=== PATIENT | male | born 1980 | race Caucasian/White ===

== ENCOUNTER 2020-04-23 06:41 | Emergency (ER) | payer MEDICAID, SELFPAY ==
[2020-04-23 06:42] VITALS: BP 160/98; PULSE 90; RESP 18; TEMP 37.4; O2SAT 98; BMI 24.4
--- NOTE | 2020-04-23 06:46 | ED.VIS.GEN ---
History of Present Illness Chief Complaint: Nausea/Vomiting/Diarrhea Informant: Patient Onset: Yesterday Context: Sudden Onset Timing: Continuous Current Severity: Moderate Maximum Severity: Moderate Narrative: Patient is a 39-year-old male was otherwise healthy on no daily medications who presents with nausea, vomiting, diarrhea. Patient dates he was at work last evening. He states he began to feel nauseated and lightheaded. He states he has had about 3 bouts of nonbloody, nonbilious emesis. Shortly thereafter, he began to have some abdominal cramping and a few bouts of loose watery diarrhea. He denies fever. He denies cough. He is had no change in taste or smell. He states that he is starting to feel improved, but needed to be evaluated for his job. He has no history of abdominal surgery. He has no history of inflammatory bowel disease. Prior similar symptoms: No Recent Illness/Hospitalization: No Past Medical History - Allergies and Home Meds Allergies/Adverse Reactions: Allergies No Known Allergies Allergy (Verified 04/23/20 06:47) Prior records reviewed: Yes Past Medical History: None Surgical History: noncontributory Smoking Status: Current every day smoker Review of Systems General: Denies: Chills, Fever, Sweats Eyes: Denies: Visual changes - bilaterally, Diplopia ENT: Denies: Rhinorrhea, Sore throat Cardiovascular: Denies: Chest pain, Palpitations Respiratory: Denies: Dyspnea, Cough, Dyspnea on exertion Gastrointestinal: Reports: Nausea, Vomiting, Diarrhea. Denies: Abdominal pain, Melena, Hematochezia Genitourinary: Denies: Dysuria, Hematuria, Frequency Musculoskeletal: Denies: Back pain, Extremity Pain Skin: Denies: Rash, Wounds Neurological: Denies: Headache, Weakness, Numbness Physical Exam Vital Signs/Narrative: Vital Signs Temp Pulse Resp BP Pulse Ox 04/23/20 06:42 99.3 F H 90 18 160/98 H 98 Inital Vital Signs reviewed: Yes General: Well nourished, Well developed, No Acute Distress Head: Normocephalic, Atraumatic Eyes: Perrl, EOMI ENT: Moist mucous membranes, No rhinorrhea Neck: Supple, Nontender Cardiovascular: Regular rate, Regular rhythm, No murmurs Respiratory: No distress, CTA bilaterally, Chest nontender Abdomen: Soft, Nontender, Nondistended, Normal bowel sounds Back: Nontender, Normal Inspection Extremities: Nontender, No edema Skin: Normal color, No rash Neurological: Alert, Oriented x3, Cranial nerves II-XII grossly intact, Normal Strength, Normal Sensation Psychological: Normal affect, Normal Mood Diagnostic/Tx/Re-eval - Medical Decision Making Patient's abdomen is soft and nontender. He is afebrile. He is not tachycardic or tachypneic. The patient was very adamant that he did not want an IV or lab work. I feel this is reasonable. He does not appear ill or toxic. I offered him antiemetics but he states he wants to tough it out and feels that I would do better without medication. I did elect to write the patient a prescription for antiemetics which he did take. He states that if his symptoms worsen in any way, he will return for reevaluation. I feel this is reasonable. He will be discharged. Impression 1. Gastroenteritis ED Disposition - Plan for ED Patient: Instructions: ED Food Poison Or Gastroenteritis Prescriptions: Ondansetron [Zofran Odt] 4 mg PO Q8H PRN PRN #10 tab PRN Reason: Nausea Prescription Printed
[2020-04-23 06:53] VITALS: BP 152/98; PULSE 95; RESP 18; O2SAT 96
== END 2020-04-23 07:04 | disposition home or self-care (01) ==
LOC: ED 07:01
PROVIDERS: Emergency Provider Emergency Medicine
DX: K52.9 Noninfective gastroenteritis and colitis, unspecified (principal); F17.200 Nicotine dependence, unspecified, uncomplicated
CPT/HCPCS: 99282

== ENCOUNTER 2022-08-21 20:33 | Emergency (ER) | payer MEDICAID, SELFPAY ==
[2022-08-21 20:34] VITALS: BP 116/79; PULSE 89; RESP 15; TEMP 36.9; O2SAT 96; BMI 29.9
--- NOTE | 2022-08-21 20:53 | ED.VIS.LOWEX ---
HPI History of Present Illness Chief Complaint: Lower Extremity Injury Detail of Chief Complaint: Left thigh pain Informant: patient Narrative Narrative: Patient presents with intermittent left thigh pain that started about 2 weeks ago. Patient states that when he is standing on his left leg after about 5 to 10 minutes he will get a burning sensation in the muscle of the front of the thigh. Patient states that if he sits down or gets off his leg that the pain then goes away. Today he had more severe pain encounter radiated towards the left hip. He denies any falls or injuries. He has not had any recent illness. He is never had discomfort like this before. Patient denies weakness of the extremity. PFSH PFS Medical History Anxiety Depression Smoker Home Medications buspirone 10 mg tablet 10 mg PO DAILY 08/21/22 [History Last Taken Unknown] naproxen 500 mg tablet 500 mg PO BID #14 tabs 08/21/22 [Rx Last Taken Unknown] potassium chloride 20 mEq tablet,extended release(part/cryst) 20 meq PO DAILY #10 tabs 08/21/22 [Rx Last Taken Unknown] quetiapine 100 mg tablet 100 mg PO QHS 08/21/22 [History Last Taken Unknown] venlafaxine 25 mg tablet 25 mg PO DAILY 08/21/22 [History Last Taken Unknown] Allergy/AdvReac Type Severity Reaction Status Date / Time No Known Allergies Allergy Verified 08/21/22 20:39 Social History Smoking Status: Current every day smoker tobacco type: cigarettes ROS ROS ED Review of Systems ROS Unobtainable: other Constitutional Constitutional ED: Reports lethargy; Denies chills, fever(s), sweats or weight loss Eyes Eyes: Denies blurry vision, change in vision or diplopia ENT ENT ED: Denies rhinorrhea or sore throat Cardiovascular Cardiovascular: Denies chest pain, orthopnea or racing heartbeat Respiratory/Chest Respiratory/Chest: Denies cough, dyspnea, dyspnea on exertion, orthopnea or sputum Gastrointestinal Gastrointestinal: Denies abdominal pain, diarrhea, nausea or vomiting Genitourinary Genitourinary ED: Denies dysuria, hematuria or urinary frequency Musculoskeletal Musculoskeletal: Reports other Details: Left leg pain ; Denies arthralgias, back pain, myalgias or neck pain Integumentary Denies abscess, Abrasions or rash Neurologic Neurologic: Denies headache(s) or weakness Psychiatric Psychiatric: Denies anxiety, depression or suicidal thoughts Endocrine Endocrinology: Denies polydipsia, polyphagia or polyuria Hematologic/Lymphatic Hematologic/Lymphatic: Denies easy bleeding, easy bruising or lymphadenopathy Allergic/Immunologic Allergic/Immunologic ED: Denies mouth swelling, tongue swelling or urticaria EXAM Physical Exam Const Vital Signs: 08/21/22 20:34 Temperature 98.5 F Temperature Source Temporal Pulse Rate 89 Respiratory Rate 15 Blood Pressure 116/79 Blood Pressure Mean 91 Pulse Ox 96 Oxygen Delivery Method Room Air Positive well nourished and well developed General Appearance ED: well developed and NAD HEENT Reports TM's clear and moist mucous membranes normocephalic and atraumatic; Negative for trauma or tenderness Tympanic Membrane ED: Yes TM's clear Eyes PERRL and EOMs intact bilaterally General Eye ED: Negative for pale conjunctiva or scleral icterus Neck no lymphadenopathy, supple and no JVD General: Negative for tenderness Chest Wall inspection of chest normal and palpation of chest normal Chest: Negative for tenderness Resp normal respiratory effort and clear to auscultation bilaterally Effort and Inspection: Negative for respiratory distress or pain with movement Auscultation: Negative for rhonchi, wheezes or diminished lung sounds Cardio regular rate, regular rhythm, S1 normal heart sound, S2 normal heart sound and no murmurs Peripheral Pulses: pulses 2+ throughout GI normal to inspection, nondistended, normoactive bowel sounds, soft to palpation, non-tender, non-distended and no masses Back/Spine no CVA tenderness and no thoracic nor lumbar tenderness Extremity normal to inspection Extremity Narrative: Evaluation of the left thigh reveals no evidence of trauma. There is no edema. I cannot reproduce his pain with palpation of the muscle or femur. He has normal range of motion at the hip and knee. He is neurovascular intact distally. No ropes or cords palpated. General Extremety ED: Negative for edema General Extremity: Negative for edema Neuro oriented x3, CN's II-XII intact bilaterally, no sensory deficits noted and gait normal Sensorium / Orientation: awake, alert, oriented to person, oriented to place and oriented to time Motor Exam: strength 5/5 throughout and strength abnormal Psych mental status grossly normal Skin no rashes or lesions noted and no wounds MDM MDM MDM Narrative Medical decision making narrative: Patient presents with burning sensation left thigh. Clinically description would be consistent with a neuropathy such as meralgia paresthetica potentially. Patient is PERC negative. No prior history of DVT. I will check basic electrolytes including potassium and magnesium and calcium. Blood work obtained did show a depressed potassium of 2.6. I give him 60 mEq p.o. here in the department. It is unclear if this is the etiology of his pain. I will refer him to orthopedics and primary care physician for follow-up. Patient will require further follow-up on his potassium levels. I will write him for oral supplement daily 20 mEq. Patient advised to take naproxen for pain. He does not want narcotic pain medication. Patient does state that he drinks alcohol daily mostly beer in the range of 4-5 per night. He tells me he has had some issues with hypokalemia in the past when he was drinking a lot of liquor and having diarrhea. Lab Data Labs: Laboratory Results - last 24 hr 08/21/22 21:03 Sodium 133 L Potassium 2.6 L* Chloride 91 L Carbon Dioxide 35.0 H Anion Gap 7 BUN 7 Creatinine 1.09 Estim Creat Clear Calc 104.74 Est GFR (MDRD) Af Amer 96 Est GFR (MDRD) Non-Af 80 BUN/Creatinine Ratio 6.4 L Glucose 118 H Calcium 8.9 Magnesium 1.9 Total Creatine Kinase 137 Discharge Plan Triage Chief Complaint: Lower Extremity Injury ED Provider: Ana Mcgrath Dx/Rx/DC Orders Clinical Impression: Left thigh pain, Hypokalemia, Meralgia paresthetica, Alcohol abuse Instructions: Hypokalemia Dc, ED Neuropathy, Peripheral, ED Pain, Acute, Uncertain Cause, ED Alcohol Abuse Prescriptions: New naproxen 500 mg tablet 500 mg PO BID Qty: 14 0RF potassium chloride 20 mEq tablet,ER particles/crystals 20 meq PO DAILY Qty: 10 0RF No Action venlafaxine 25 mg tablet 25 mg PO DAILY Label Comments: Take 1 tablet by mouth once daily. Take with a meal and around the same time every day. quetiapine 100 mg tablet 100 mg PO QHS Label Comments: TAKE 1 TABLET BY MOUTH DAILY AT BEDTIME buspirone 10 mg tablet 10 mg PO DAILY Primary Care Provider: Care Physician,No Primary Referrals: Slick Stafford DO [Med Staff - Active Staff] - 3-5 Days Pete Yuan MD [Med Staff - Active Staff] - 5-7 Days Care Physician,No Primary [Primary Care Provider] - Disposition Disposition: Home, Self Care
[2022-08-21 21:47] LABS: Anion Gap 7 (5-15); BUN 7 mg/dL (7-18); BUN/Creat Ratio 6.4 RATIO (10-20); CPK Total, Creatine Kinase 137 U/L (39-308); Calcium,Total 8.9 mg/dL (8.5-10.1); Chloride 91 mmol/L (98-107); Creatinine, Serum 1.09 mg/dL (0.70-1.30); EST Glomerular Filtration Rate 80 mL/min (>60); Est Glom Filt Rate - Afr Amer 96 mL/min (>60); Estimated Creatinine Clearance 104.74 ml/min; Glucose 118 mg/dL (74-106); Magnesium 1.9 mg/dL (1.6-2.6); Potassium 2.6 mmol/L (3.5-5.1); Sodium Level 133 mmol/L (136-145)
[2022-08-21] MEDS: Potassium Chloride Oral Tablet 20 MEQ 60 MEQ PO (22:03)
== END 2022-08-21 22:06 | disposition home or self-care (01) ==
PROVIDERS: Emergency Provider Emergency Medicine; Visit Provider Emergency Medicine
DX: G57.12 Meralgia paresthetica, left lower limb (principal); E87.6 Hypokalemia; F17.210 Nicotine dependence, cigarettes, uncomplicated
CPT/HCPCS: 80048; 82550; 83735; 99283

== ENCOUNTER 2023-04-05 08:56 | Inpatient (IN) | payer MEDICAID, SELFPAY ==
[2023-04-05] VITALS (7 sets, daily range): BP systolic 116–132; BP diastolic 54–100; PULSE 88–115; RESP 14–20; TEMP 36.1–36.7; O2SAT 94–100; BMI 28.7
--- NOTE | 2023-04-05 09:25 | EX.ED.DYSGE1 ---
HPI History of Present Illness Chief Complaint: General Illness Informant: patient Narrative Narrative: Patient presents with multiple concerns. Patient states he has been extremely tired for 8 or 9 months. This is not an acute process. It gets worse anytime he goes to work. He feels like his whole body runs out of energy. He says it starts in his legs and then moves up to everything. He almost gets kind of a cramping or aching feeling. He does get pain in his legs after long walking. More on the left than the right. But he rarely ever gets back pain. No bowel or bladder dysfunction. No numbness. He has not fallen. Patient also complains that he has been coughing and exposed to a bunch of chemicals at work. 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 About 4 of it was training with videos. But he states it is very kira. He sounds like he was issued a temporary mask and then a half facemask. He is supposed to get fitted for full mask today. He states when he is not there the breathing seems better. Of note he is also a 2 pack-a-day smoker but is cut back to 1 pack a day. Patient also complains that for a while his friends have been telling him he is jaundiced. He is a heavy drinker. He states he is down to only drinking 1 pint of 40 proof liquor a day. He did go through detox approximately a year ago in [place]. It sounds like it was a month-long process and he stayed clean for 9 months. He used to see a doctor locally. He was given buspirone, Seroquel and venlafaxine. He states he has not followed up in a while and he thinks his drinking increased when he stopped taking the quetiapine at night. But he is not suicidal or homicidal. He does not want detox now. He states he does not feel as though he is lost control of his drinking. If he feels as though he loses control he will come in for that. PFSH PFS Medical History Anxiety Depression Smoker Home Medications buspirone 10 mg tablet 10 mg PO DAILY 08/21/22 [History Last Taken 04/03/23] quetiapine 100 mg tablet 100 mg PO QHS 08/21/22 [History Last Taken Unknown] Allergy/AdvReac Type Severity Reaction Status Date / Time No Known Allergies Allergy Verified 04/05/23 09:01 Social History Smoking Status: Current every day smoker tobacco type: cigarettes ROS ROS ED ROS Narrative A complete review of systems was performed and is negative except as documented in the history of present illness. Some specific details below. Constitutional: No recent fevers or chills. EYE: No visual complaints but friends have noticed that his eye color seems more yellow. ENT: No difficulty swallowing. No swelling. No pain. No GERD symptoms CV: No chest pain or palpitations. Respiratory: Coughing primarily at work with exposure to rubber dust. No sputum production. GI: No nausea vomiting. No abdominal pain or pressure. No pain at the liver. : No frequency dysuria or hematuria. No foaming or darkening of the urine Musculoskeletal: No recent trauma. He does have pains when he works that make him feel tired. Skin: No rash. Nondiaphoretic. Neuro: No focal weakness or numbness. Endocrine: No polyuria or polydipsia. EXAM Physical Exam Narrative Exam Narrative: General: Patient is covered with some black dust and soot from his work. There is less around the face and mouth which makes me think there may be some mask that he was using. Or he could have rinse this area off. HEENT: No trauma. Mucous membranes are moist. Mildly poor dentition but not painful. Eyes: The eyes are a little bit bloodshot. There may be a little bit of icterus also. Neck is supple no JVD is noted. No HJR. Lungs are clear with easy breathing. But when I have him take a deep breath he does develop some wheeze and cough. He is a heavy smoker. Sounds like he has used inhalers before although he is not diagnosed with asthma. Abdomen is obese but not tender. I do not feel like there is fluid. Nor do I get any fullness of the liver on exam although the exam is mildly difficult. Extremities show no swelling. There are mild abrasions on his shins. No pallor. No mottling. Good peripheral pulses. Good sensation. Neurologic: Patient is awake alert appropriate. I am not getting any weakness on exam. Const Vital Signs: 04/05/23 08:57 04/05/23 09:41 04/05/23 09:52 Temperature 97.8 F Temperature Source Temporal Pulse Rate 115 H 88 Respiratory Rate 18 20 H Respiratory Effort Normal Non-Labored Respiratory Pattern Normal Normal Blood Pressure 132/100 H Blood Pressure Mean 110 Pulse Ox 97 Oxygen Delivery Method Room Air MDM MDM MDM Narrative Medical decision making narrative: Patient CBC shows mild anemia. No thrombocytopenia. Electrolytes show markedly low potassium at 1.9. There is some hyponatremia also. I am replacing his potassium both orally and IV. Patient's liver function tests do show a slight elevation in the bilirubin at 2.1. Alk phos is minimally up. AST is higher than ALT. This is all consistent with likely heavy drinking. Patient's troponin is normal at 7. This was done due to his markedly abnormal EKG even though this is likely due to his low potassium. Patient's alcohol level is 0. I am replacing his potassium both orally and IV due to his severely low level with weakness and EKG changes. With this level I did think bringing in the hospital is appropriate as it will take quite some time to replace this safely. I did talk with the patient about this. He figured since there is no way he could go to work today anyway he is okay with admission. I then talked to the hospitalist. Lab Data Attestation: I reviewed the patient's lab results. Labs: Laboratory Results - last 24 hr 04/05/23 09:45 WBC 8.9 RBC 2.98 L Hgb 12.6 L Hct 34.2 L MCV 114.8 H MCH 42.3 H MCHC 36.8 H RDW Std Deviation 55.8 H RDW Coeff of Manju 13.2 Plt Count 187 MPV 9.4 Immature Gran % (Auto) 0.500 Neut % (Auto) 70.7 H Lymph % (Auto) 23.8 [place] % (Auto) 2.9 Eos % (Auto) 1.8 Baso % (Auto) 0.3 Absolute Neuts (auto) 6.3 Absolute Lymphs (auto) 2.11 Nucleated RBC % 0 Sodium 128 L Potassium 1.9 L* Chloride 82 L Carbon Dioxide 35.0 H Anion Gap 11 BUN 8 Creatinine 0.92 Estim Creat Clear Calc 124.09 Est GFR (MDRD) Af Amer 116 Est GFR (MDRD) Non-Af 96 BUN/Creatinine Ratio 8.7 L Glucose 148 H Calcium 7.8 L Total Bilirubin 2.10 H AST 64 H ALT 36 Alkaline Phosphatase 131 H Troponin I High Sens 7 Total Protein 7.1 Albumin 2.8 L Globulin 4.3 H Albumin/Globulin Ratio 0.7 L Ethyl Alcohol < 3.0 Radiography Diagnostic Testing: Clinical Impression(s) from Imaging Studies Chest X-Ray 04/05/23 09:58 IMPRESSION: No acute cardiopulmonary disease. Electronically Signed: Jarrell Borrero MD at 10:23 EDT , EKG Initial EKG: Comments: My independent interpretation of the patient's EKG shows sinus rhythm with first-degree AV block. Overall rate of 92. He has diffuse ST-T wave changes along with prolonged QT T wave inversion and ST flattening. This is likely electrolyte abnormalities. I looked in the past and he had prior potassiums at 2.6. When this EKG was obtained we were pending his potassium level. He has a long MI interval and QTc with a normal QRS Discharge Plan Triage Chief Complaint: General Illness ED Provider: Edenilson Mo Dx/Rx/DC Orders Clinical Impression: Alcoholism, Muscle weakness, Acute electrocardiogram changes, Acute hyponatremia, Acute hypokalemia Prescriptions: No Action quetiapine 100 mg tablet 100 mg PO QHS Patient Comments: PT STATES RAN OUT AND HAS NOT TAKEN IN ABOUT 2 MONTHS buspirone 10 mg tablet 10 mg PO DAILY Primary Care Provider: Care Physician,No Primary Referrals: Care Physician,No Primary [Primary Care Provider] - Disposition Disposition: Acute Care Hospital [facility]
--- NOTE | 2023-04-05 09:29 | NURSING ---
NO OLD EKGS
[2023-04-05] MEDS: Ipratropium/Albuterol Sulfate 3 ML AMPUL.NEB INHALATION (09:40)
--- NOTE | 2023-04-05 09:58 | RAD_ITS ---
EXAM: XR CHEST, 2 VIEWS CLINICAL INDICATION: cough TECHNIQUE: Frontal and lateral views of the chest. COMPARISON: No relevant prior studies available. FINDINGS: LUNGS AND PLEURAL SPACES: No consolidation or edema. No pneumothorax. No effusion. HEART: Normal heart size. MEDIASTINUM: No mediastinal or hilar mass. BONES/JOINTS: No acute abnormality. RAD/Chest PA and Lateral IMPRESSION: No acute cardiopulmonary disease. Electronically Signed: Jarrell Borrero MD at 10:23 EDT ,
[2023-04-05 09:59] LABS: Absolute Lymphocyte Count 2.11 X10^3/uL (0.83-4.51); Absolute Neutrophil Count 6.3 X10^3/uL (2.0-7.7); Basophil# 0.03 X10^3/uL; Basophil% 0.3 % (0-1); Eosinophil# 0.16 X10^3/uL; Eosinophils% 1.8 % (0-5); Hematocrit 34.2 % (40-54); Hemoglobin 12.6 g/dL (13.0-16.5); Lymphocyte # 2.11 X10^3/ul (0.83-4.51); Lymphocyte % 23.8 % (19-41); Mean Corp Hgb Conc 36.8 g/dL (32-36); Mean Corpuscular Hgb 42.3 pg (27.0-32.0); Mean Corpuscular Volume 114.8 fL (80-94); Mean Platelet Vol. 9.4 fl (6.2-12.0); Monocyte# 0.26 X10^3/uL; Monocyte% 2.9 % (0-10); NRBC Flagged by Analyzer 0 % (0-5); Neutrophil # 6.26 X10^3/uL (2.7-7.7); Neutrophil % 70.7 % (47-70); Platelet Count 187 K/mm3 (150-450); RBC Distribution Width CV 13.2 % (11.6-14.6); RBC Distribution Width SD 55.8 fl (35.1-43.9); Red Blood Count 2.98 M/mm3 (4.6-6.2); White Blood Count 8.9 K/mm3 (4.4-11.0)
[2023-04-05 10:04] LABS: Alcohol, Blood (Medical)-Serum < 3.0 mg/dL
[2023-04-05 10:19] LABS: ALB/GLOB Ratio 0.7 RATIO (0.9-2.4); AST(SGOT) 64 U/L (15-37); Alanine Aminotransfer ALT/SGPT 36 U/L (16-61); Albumin, Serum 2.8 g/dL (3.2-5.0); Alkaline Phosphatase 131 U/L (45-117); Anion Gap 11 (5-15); BUN 8 mg/dL (7-18); BUN/Creat Ratio 8.7 RATIO (10-20); Calcium,Total 7.8 mg/dL (8.5-10.1); Chloride 82 mmol/L (98-107); Creatinine, Serum 0.92 mg/dL (0.70-1.30); EST Glomerular Filtration Rate 96 mL/min (>60); Est Glom Filt Rate - Afr Amer 116 mL/min (>60); Estimated Creatinine Clearance 124.09 ml/min; Globulin 4.3 g/dL (2.2-4.2); Glucose 148 mg/dL (74-106); Potassium 1.9 mmol/L (3.5-5.1); Protein, Total 7.1 g/dL (6.4-8.2); Sodium Level 128 mmol/L (136-145); Troponin-I HS 7 pg/mL (3.0-78.0)
--- NOTE | 2023-04-05 10:50 | HP.PCM_ITS ---
HPI - General General Date of Admission: 04/05/23 Date of Service: 04/05/23 Chief Complaint: general weakness and jaundice HPI Narrative TAMMY PLATA, is a 42 M with a PMH as outlined who presents via the ED with a complaint of generalised weakness and and tiredness which had been going on for 8-9 months. 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 He said he feels short of breath also at work and he was worried so he came into the ED. He denies any cough admitted with chest tightness which he attributed to the shortness of breath. He denied any dizziness or lightheadedness, nausea or vomiting or any other symptoms. He admitted to drinking alcohol and said he drank significant amounts of liquor. He also smoked about 2 packs daily. He denied any other drug use. Of note he also admitted to generalized pains in his extremities. Vitals in the ED were RI of 88, temp of 97.8F, RR of 115 and BP of 132/100/ He was saturating at 97% on room air. CBC showed hb of 12.6, wbc of 8.9, platelets of 187. Chemistry showed sodium of 128, potassium of 1.9, bicarb of 35 and cr of 0.92. Total bilirubin was 2.1, AST of 64, ALT of 36 and ALP of 131. CXR showed no acute cardiopulmonary disease. EKG showed prolonged QT. He is being admitted to be managed for acute hypokalemia likely due to chronic alcohol abuse. [facility] Medical History Anxiety Depression Smoker Home Medications buspirone 10 mg tablet 10 mg PO DAILY 08/21/22 [History Last Taken 04/03/23] quetiapine 100 mg tablet 100 mg PO QHS 08/21/22 [History Last Taken Unknown] Allergy/AdvReac Type Severity Reaction Status Date / Time No Known Allergies Allergy Verified 04/05/23 09:01 Social History Smoking Status: Current every day smoker tobacco type: cigarettes ROS Constitutional Constitutional: Reports fatigue, malaise and weakness; Denies anorexia, chills or fever(s) ENT HEENT: Denies dysphagia, headache(s), sore throat or throat swelling Cardiovascular Cardiovascular: Denies chest pain, edema, orthopnea, palpitations, paroxysmal nocturnal dyspnea or syncope Respiratory/Chest Respiratory/Chest: Denies cough, shortness of breath at rest or shortness of breath with exertion Gastrointestinal Gastrointestinal: Denies abdominal pain, nausea or vomiting Genitourinary Genitourinary: Denies dysuria, nocturia or oliguria Musculoskeletal Musculoskeletal: Denies back pain, joint pain, joint stiffness or muscle weakness Neurologic Neurologic: Denies confusion, dizziness or focal weakness Psychiatric Psychiatric: Denies anxiety Vital Signs Vital Signs Vital Signs: 04/05/23 08:57 04/05/23 09:41 04/05/23 09:52 Temperature 97.8 F Temperature Source Temporal Pulse Rate 115 H 88 Respiratory Rate 18 20 H Respiratory Effort Normal Non-Labored Respiratory Pattern Normal Normal Blood Pressure 132/100 H Blood Pressure Mean 110 Pulse Ox 97 Oxygen Delivery Method Room Air Weight Weight: 223 lb 7 oz Body Mass Index (BMI) 28.7 Physical Exam Const alert, oriented x3, no apparent distress and well nourished General Appearance: cooperative HEENT normocephalic, head/scalp atraumatic, moist oral mucous membranes and oropharynx normal Eyes PERRL and EOMs intact bilaterally Neck no lymphadenopathy and supple Lymph Lymphatic: no lymphadenopathy noted and no lymphedema noted Resp normal respiratory effort, normal air movement and clear to auscultation bilaterally Cardio regular rate, regular rhythm, S1 normal heart sound, S2 normal heart sound and no murmurs GI normal to inspection, nondistended, normoactive bowel sounds, soft to palpation, non-tender and non-distended Extremity normal capillary refill, no clubbing, cyanosis or edema and no calf tenderness Skin General Skin Exam: no breakdown Neuro CN's II-XII intact bilaterally, no focal motor deficits, no sensory deficits noted and deep tendon reflexes 2+ bilaterally Motor Exam: strength 5/5 throughout and general weakness Psych thought process normal and cooperative Appearance: appropriate Results Lab / Micro Data 04/06/23 04:35 04/06/23 13:25 Labs: Laboratory Results - last 24 hr 04/05/23 09:45: WBC 8.9, RBC 2.98 L, Hgb 12.6 L, Hct 34.2 L, MCV 114.8 H, MCH 42.3 H, MCHC 36.8 H, RDW Std Deviation 55.8 H, RDW Coeff of Manju 13.2, Plt Count 187, MPV 9.4, Immature Gran % (Auto) 0.500, Neut % (Auto) 70.7 H, Lymph % (Auto) 23.8, [place] % (Auto) 2.9, Eos % (Auto) 1.8, Baso % (Auto) 0.3, Absolute Neuts (auto) 6.3, Absolute Lymphs (auto) 2.11, Nucleated RBC % 0, Sodium 128 L, Potassium 1.9 L*, Chloride 82 L, Carbon Dioxide 35.0 H, Anion Gap 11, BUN 8, Creatinine 0.92, Estim Creat Clear Calc 124.09, Est GFR (MDRD) Af Amer 116, Est GFR (MDRD) Non-Af 96, BUN/Creatinine Ratio 8.7 L, Glucose 148 H, Calcium 7.8 L, Total Bilirubin 2.10 H, AST 64 H, ALT 36, Alkaline Phosphatase 131 H, Troponin I High Sens 7, Total Protein 7.1, Albumin 2.8 L, Globulin 4.3 H, Albumin/Globulin Ratio 0.7 L, Ethyl Alcohol < 3.0 Radiology Impression Chest X-Ray 04/05/23 09:58 IMPRESSION: No acute cardiopulmonary disease. Electronically Signed: Jarrell Borrero MD at 10:23 EDT , Assessment & Plan Assessment/Plan (1) Acute hypokalemia: (2) Acute hyponatremia: (3) Muscle weakness: PLAN: Plan #Acute hypokalemia * likely due to chronic alcohol abuse * he is having EKG changes and also generalised weakness and cramps * start on IV potassium 40meq and PO potassium 60meq x 1 * check magnesium * hydrate with IVF ringer's lactate at 125cc/hr * #Hyponatremia: likely due to chronic alcohol abuse. Should improve with hydration with IVF. #Elevated liver enzymes: total bilirubin is 2.1, with AST of 64 and ALT of 36 as well as ALP of 131. Likely due to chronic alchohol abuse. Will monitor #Chronic alcohol abuse: not in acute withdrawal. Doesnt want to undergo detox. Will put on CIWA score as a precaution DVT prophylaxis: low risk, encourage to ambulate Charges/Coding Visit Charges Inpatient E&M: 37160 Init Hosp L3
--- NOTE | 2023-04-05 10:50 | NURSING ---
DR YONI GALLAGHER
[2023-04-05] MEDS: Potassium Chloride Oral Tablet 20 MEQ 40 MEQ PO (10:58)
[2023-04-05] MEDS: Potassium Chloride 10mEq/100mL 10 MEQ/100 ML IV.SOLN. 100 MEQ IV BOLUS ×4 (10:58→14:09)
--- NOTE | 2023-04-05 11:11 | NURSING ---
PCU KORAM HYPOKALEMIA, EKG CHANGES
--- NOTE | 2023-04-05 11:36 | CM.ED ---
Social Work Referral Source: case find Referral Reason: no PCP SW met with patient and introduced herself and role as [facility] [employer]. Patient lying on hospital bed and agreeable to speak with SW. SW inquired about patient's insurance and current PCP. Patient verified insurance and reports no current PCP. SW provided patient with a list of local PCPs in network with patient's insurance and accepting new patients. Patient was receptive towards list and voiced no other needs. SW remains available if needs arise. Tova Stewart MSW, TANYA
[2023-04-05] MEDS: KCL 20MEQ in 0.9% NS 20 MEQ/1,000 ML IV.SOLN. 125 MEQ IV ×2 (13:04→20:46)
[2023-04-05] MEDS: QUEtiapine 100 MG Tablet PO (20:48)
[2023-04-06 03:00] VITALS: BP 102/58; PULSE 89; RESP 18; TEMP 36.4; O2SAT 93
[2023-04-06 04:52] LABS: Absolute Lymphocyte Count 1.99 X10^3/uL (0.83-4.51); Absolute Neutrophil Count 2.9 X10^3/uL (2.0-7.7); Basophil# 0.02 X10^3/uL; Basophil% 0.4 % (0-1); Eosinophil# 0.14 X10^3/uL; Eosinophils% 2.7 % (0-5); Hematocrit 28.8 % (40-54); Hemoglobin 10.3 g/dL (13.0-16.5); Lymphocyte # 1.99 X10^3/ul (0.83-4.51); Lymphocyte % 38.6 % (19-41); Mean Corp Hgb Conc 35.8 g/dL (32-36); Mean Corpuscular Hgb 42.2 pg (27.0-32.0); Mean Platelet Vol. 9.2 fl (6.2-12.0); Monocyte# 0.13 X10^3/uL; Monocyte% 2.5 % (0-10); NRBC Flagged by Analyzer 0 % (0-5); Neutrophil # 2.85 X10^3/uL (2.7-7.7); Neutrophil % 55.2 % (47-70); POSITIVE MORPHOLOGY YES; Platelet Count 132 K/mm3 (150-450); RBC Distribution Width CV 13.4 % (11.6-14.6); RBC Distribution Width SD 58.2 fl (35.1-43.9); Red Blood Count 2.44 M/mm3 (4.6-6.2); White Blood Count 5.2 K/mm3 (4.4-11.0)
[2023-04-06 05:01] LABS: Differential Indicated SCAN CRITERIA MET
[2023-04-06 05:13] LABS: Anion Gap 5 (5-15); BUN 7 mg/dL (7-18); BUN/Creat Ratio 10.4 RATIO (10-20); Calcium,Total 7.3 mg/dL (8.5-10.1); Chloride 94 mmol/L (98-107); Creatinine, Serum 0.67 mg/dL (0.70-1.30); EST Glomerular Filtration Rate 139 mL/min (>60); Est Glom Filt Rate - Afr Amer 168 mL/min (>60); Glucose 125 mg/dL (74-106); Magnesium 1.8 mg/dL (1.6-2.6); Sodium Level 134 mmol/L (136-145)
[2023-04-06 05:14] LABS: Hypochromasia 1+; Macrocytosis 2+; Platelet Estimate SLT DEC (ADEQ)
[2023-04-06] MEDS: Potassium Chloride 10mEq/100mL 10 MEQ/100 ML IV.SOLN. 100 MEQ IV BOLUS ×5 (05:46→16:16)
[2023-04-06] MEDS: busPIRone 5 MG Tablet 10 MG PO (09:05)
[2023-04-06] MEDS: Potassium Chloride Oral Tablet 20 MEQ 60 MEQ PO (09:05)
[2023-04-06 09:11] VITALS: PULSE 109
[2023-04-06 09:22] VITALS: BP 132/96; PULSE 105; RESP 20; TEMP 36.6; O2SAT 94
--- NOTE | 2023-04-06 10:07 | PN_ITS ---
Subjective Subjective Patient seen and examined. He complains his urine is dark today. He complains of some numbness in his toes which have resolved. Potassium is 2. Review of systems is otherwise negative. Objective Data Objective Data Vital Signs: Vital Signs Temp Pulse Resp BP Pulse Ox O2 Del Method 97.8 F 105 H 20 H 132/96 H 94 Room Air 04/06/23 09:22 04/06/23 09:22 04/06/23 09:22 04/06/23 09:22 04/06/23 09:22 04/06/23 09:22 Oxygen Delivery Method Room Air Weight: 223 lb 11.2 oz Body Mass Index (BMI) 28.7 Intake & Output: Intake and Output for Last 24 Hours 04/04/23 04/05/23 04/06/23 23:59 23:59 23:59 Intake Total 1359.17 / 1359.17 1200 / 1200 Balance 1359.17 / 1359.17 1200 / 1200 Lab / Micro Data 04/06/23 04:35 04/06/23 04:35 Labs: Laboratory Results - last 24 hr 04/05/23 09:45: Sodium 128 L, Potassium 1.9 L*, Chloride 82 L, Carbon Dioxide 35.0 H, Anion Gap 11, BUN 8, Creatinine 0.92, Estim Creat Clear Calc 124.09, Est GFR (MDRD) Af Amer 116, Est GFR (MDRD) Non-Af 96, BUN/Creatinine Ratio 8.7 L, Glucose 148 H, Calcium 7.8 L, Total Bilirubin 2.10 H, AST 64 H, ALT 36, Alkaline Phosphatase 131 H, Troponin I High Sens 7, Total Protein 7.1, Albumin 2.8 L, Globulin 4.3 H, Albumin/Globulin Ratio 0.7 L 04/06/23 04:35: WBC 5.2, RBC 2.44 L, Hgb 10.3 L, Hct 28.8 L, MCV 118.0 H, MCH 42.2 H, MCHC 35.8, RDW Std Deviation 58.2 H, RDW Coeff of Manju 13.4, Plt Count 132 L, MPV 9.2, Immature Gran % (Auto) 0.600, Neut % (Auto) 55.2, Lymph % (Auto) 38.6, [place] % (Auto) 2.5, Eos % (Auto) 2.7, Baso % (Auto) 0.4, Absolute Neuts (auto) 2.9, Absolute Lymphs (auto) 1.99, Nucleated RBC % 0, Platelet Estimate SLT DEC, Hypochromasia 1+, Macrocytosis 2+, Sodium 134 L, Potassium 2.0 L*, Chloride 94 L, Carbon Dioxide 35.0 H, Anion Gap 5, BUN 7, Creatinine 0.67 L, Estim Creat Clear Calc 170.40, Est GFR (MDRD) Af Amer 168, Est GFR (MDRD) Non-Af 139, BUN/Creatinine Ratio 10.4, Glucose 125 H, Calcium 7.3 L, Phosphorus 3.0, Magnesium 1.8 Radiography Diagnostic Testing: Radiology Impression Chest X-Ray 04/05/23 09:58 IMPRESSION: No acute cardiopulmonary disease. Electronically Signed: Jarrell Borrero MD at 10:23 EDT Reading Location ID and State: [facility] Tel , Service support , Physical Exam Const alert, oriented x3, no apparent distress and well nourished General Appearance: cooperative HEENT normocephalic, head/scalp atraumatic, moist oral mucous membranes and oropharynx normal Eyes PERRL and EOMs intact bilaterally Neck no lymphadenopathy and supple Lymph Lymphatic: no lymphadenopathy noted and no lymphedema noted Resp normal respiratory effort, normal air movement and clear to auscultation eloisa aterally Cardio regular rate, regular rhythm, S1 normal heart sound, S2 normal heart sound and no murmurs GI normal to inspection, nondistended, normoactive bowel sounds, soft to palpation, non-tender and non-distended Extremity normal capillary refill, no clubbing, cyanosis or edema and no calf tenderness Skin General Skin Exam: no breakdown Neuro CN's II-XII intact bilaterally, no focal motor deficits, no sensory deficits noted and deep tendon reflexes 2+ bilaterally Motor Exam: strength 5/5 throughout and general weakness Psych thought process normal and cooperative Appearance: appropriate Assessment & Plan Assessment/Plan (1) Acute hypokalemia: (2) Acute hyponatremia: (3) Muscle weakness: (4) Alcoholism: PLAN: Plan #Refractory acute hypokalemia * potassium is 2 today. Mg is WNL * will replace aggressively and trend * likely due to his chronic alcohol abuse * #Hyponatremia: improving with hydration. Will monitor. sodium is up to 134. #Elevated liver enzymes: likely also due to chronic alcohol abuse. Will monitor #CHronic alcohol use disorder: not in acute withdrawal and not interested in detox. WIll monitor DVT prophylaxis: low risk. encourage to ambulate # Charges/Coding Visit Charges Inpatient E&M: 13655 Subs Hosp L3
--- NOTE | 2023-04-06 10:10 | CASEMGMT ---
Discharge Planning A list of?PCP providers was created from the [facility] website.? This list was provided to the RN CM. Massiel Park, Discharge Planning Asst.
--- NOTE | 2023-04-06 10:20 | CASEMGMT ---
RN?CM?EPIDEMIOLOGY INTERNSHIP?CM?to room to meet with patient for initial transition planning/care coordination?assessment.?RN?CM?introduced self and role at [facility].? Pt voices understanding and consents to?assessment?at this time.? Pt resting in bed in no distress at this time.? Pt is A/O at this time and answers all questions appropriately.?? Care providers, pharmacy, and demographics verified/updated at this time. PCP: No PCP. Pt interested in list of local PCP's in-network w/his insurance. List provided to patient that was prepared by Massiel/digital sales planner. Specialists: none. Pt was seeing a mental health counselor @ [facility], but is no longer going there. He states just wants to get established w/a PCP for now. [facility] [place] [facility] [place]:?Yes Living Will/HPOA:? Pt does not currently have LW/HCPOA and declines info at this time.? Pt made aware that he can contact as an out-pt and make appt in the future if he decides he would like to talk with someone about this or would like to utilize [facility] social work for advanced directive completion.? LNOK: Brother, Doroteo Jolly, is listed as pt's contact. Pt also has 2 other brothers, Jaime and Pelon. Pt has a 13-yr-old daughter. Living Arrangements: Lives alone in ground-floor apartment w/one step to enter. Independent. Transportation:?Pt states drives self and states no transportation concerns at this time.? DME: ? Denies using any DME and denies needs.? HHC/SNF: No hx of either. Pt wishes to return home and states has no concerns with going home at time of discharge.? Pt states he smokes 2 PPD. He states he has a Chantix starter pack @ home and declines wanting any further resources for smoking cessation. He states he drinks about a pint of 80-proof ETOH daily and has been doing this for the past 2 weeks. Prior to that he states he was drinking 2-6 24 oz cans of 8% beer/day. He states he considers himself as being recovered now that he's not drinking as much. He declines wanting resources to stop drinking, stating, I will go to [facility] immediately if I need to. CM?to follow for any further discharge planning/needs.? Pt voices no further concerns/needs at this time.? Advised pt to ask for?CM?if any further questions/concerns/needs arise.? Voices understanding. PLAN:??Home Vic BSN?RN?CM
[2023-04-06 11:46] VITALS: PULSE 82
[2023-04-06 14:00] LABS: Anion Gap 6 (5-15); BUN 5 mg/dL (7-18); BUN/Creat Ratio 8.1 RATIO (10-20); Calcium,Total 6.9 mg/dL (8.5-10.1); Chloride 98 mmol/L (98-107); Creatinine, Serum 0.61 mg/dL (0.70-1.30); EST Glomerular Filtration Rate 154 mL/min (>60); Est Glom Filt Rate - Afr Amer 186 mL/min (>60); Estimated Creatinine Clearance 187.16 ml/min; Glucose 146 mg/dL (74-106); Potassium 2.9 mmol/L (3.5-5.1); Sodium Level 136 mmol/L (136-145)
[2023-04-06 15:00] VITALS: BP 135/109; PULSE 107; RESP 14; TEMP 36.4; O2SAT 98
--- NOTE | 2023-04-06 15:00 | NURSING ---
Patient restless in room, wanting to go home. This RN informed the patient that his potassium level is still low and the doctor will be ordering more potassium. He will not be discharged today. The patient became agitated with this nurse and stated he wants to leave to smoke a cigarette and come back to his room. This RN informed him that would not be possible and that if he leaves he will need to sign a AMA form and would have to come back in via the ER. The patient then became angry stating this is a hospital not a penitentiary and that he is an [place] citizen with rights. This RN informed him that he is not being held against his will, but he can not just leave the hospital grounds go home and smoke and then come back to his ICU room. This RN offered patient a nicotine for which patient declined. This RN offered patient the ability to walk around in the hallway of ICU, for which he declined. This RN was able to calm patient down after further discussion about why his potassium level needs to be corrected and the risks of not doing so. Fresh ice water given to patient. notified.
[2023-04-06] MEDS: Potassium Chloride 10mEq/100mL 10 MEQ/100 ML IV.SOLN. 50 MEQ IV BOLUS ×2 (18:26→21:09)
[2023-04-06 21:00] VITALS: BP 118/81; PULSE 94; RESP 16; TEMP 36.6; O2SAT 97
[2023-04-06] MEDS: QUEtiapine 100 MG Tablet PO (21:09)
[2023-04-06] MEDS: Potassium Chloride 10mEq/100mL 10 MEQ/100 ML IV.SOLN. 75 MEQ IV BOLUS (23:09)
[2023-04-07 03:00] VITALS: BP 112/71; PULSE 99; RESP 18; TEMP 36.5; O2SAT 97
[2023-04-07 03:36] LABS: Absolute Lymphocyte Count 1.82 X10^3/uL (0.83-4.51); Absolute Neutrophil Count 2.2 X10^3/uL (2.0-7.7); Basophil# 0.03 X10^3/uL; Basophil% 0.7 % (0-1); Eosinophil# 0.11 X10^3/uL; Eosinophils% 2.5 % (0-5); Hematocrit 30.1 % (40-54); Hemoglobin 10.7 g/dL (13.0-16.5); Lymphocyte # 1.82 X10^3/ul (0.83-4.51); Lymphocyte % 41.6 % (19-41); Mean Corp Hgb Conc 35.5 g/dL (32-36); Mean Corpuscular Hgb 42.8 pg (27.0-32.0); Mean Corpuscular Volume 120.4 fL (80-94); Monocyte# 0.17 X10^3/uL; Monocyte% 3.9 % (0-10); NRBC Flagged by Analyzer 0 % (0-5); Neutrophil # 2.22 X10^3/uL (2.7-7.7); Neutrophil % 50.8 % (47-70); POSITIVE MORPHOLOGY YES; Platelet Count 148 K/mm3 (150-450); RBC Distribution Width CV 13.7 % (11.6-14.6); RBC Distribution Width SD 60.2 fl (35.1-43.9); White Blood Count 4.4 K/mm3 (4.4-11.0)
[2023-04-07 04:11] LABS: Anion Gap 6 (5-15); BUN 6 mg/dL (7-18); BUN/Creat Ratio 7.4 RATIO (10-20); Calcium,Total 8.1 mg/dL (8.5-10.1); Chloride 96 mmol/L (98-107); Creatinine, Serum 0.81 mg/dL (0.70-1.30); EST Glomerular Filtration Rate 112 mL/min (>60); Est Glom Filt Rate - Afr Amer 135 mL/min (>60); Estimated Creatinine Clearance 140.95 ml/min; Glucose 150 mg/dL (74-106); Magnesium 1.9 mg/dL (1.6-2.6); Potassium 2.8 mmol/L (3.5-5.1); Sodium Level 135 mmol/L (136-145)
[2023-04-07 04:19] LABS: Differential Indicated SCAN CRITERIA MET
[2023-04-07] MEDS: Potassium Chloride Oral Tablet 20 MEQ 60 MEQ PO (04:58)
[2023-04-07 05:04] LABS: Atypical Lymphocyte RARE %
--- NOTE | 2023-04-07 05:09 | NURSING ---
Pt serum potassium results back, 2.8. Notified Dr. Lawson at 0420. More K+ replacement ordered. Notified patient of his low K+ result and new orders. Pt stating he thinks he would like to leave. Discussed importance of replacing potassium with patient, patient states he is aware of the importance but will not from a potassium of 2.8. Patient stating I need a break and that this hospital doesn't allow him to leave to smoke which is unfair to him. Patient states that once he has had a few hours away from here he will return through the ER. Advised patient to stay, offered pt nicotine patch at this time patient refused. Notified ICU charge nurse, Susy Roy RN. AMA papers brought into patient room and explained by this RN. Offered patient the 60 meq's of PO potassium ordered by Dr. Lawson, patient accepted, see MAR. AMA forms signed, this RN witnessed patients signature. Patient requesting doctors note for work to show that he was here, nursing treatment supervisor, Krupa, informed this RN that pt is unable to have one d/t him leaving AMA. Informed pt of this. Dr. Lawson, nursing treatment supervisor and security notified of patients AMA status. Belongings gathered and IV removed. Security to bedside to escort patient out. Pt off unit at 0500 w/ security.
[2023-04-07 05:32] LABS: Phosphorus 2.4 mg/dL (2.5-4.9)
--- NOTE | 2023-04-07 08:18 | DS.PCM_ITS ---
Providers Date of Admission: 04/05/23 Date of Discharge: 04/07/23 Primary Care Physician: No Primary Care Phys Reason For Visit: ACUTE HYPOKALEMIA Diagnosis Discharge Diagnosis (1) Acute hypokalemia: Status: Acute Code(s): E87.6 - Hypokalemia (2) Acute hyponatremia: Status: Acute Code(s): E87.1 - Hypo-osmolality and hyponatremia (3) Muscle weakness: Status: Acute Code(s): M62.81 - Muscle weakness (generalized) Plan #Acute hypokalemia * likely due to chronic alcohol abuse * he is having EKG changes and also generalised weakness and cramps * start on IV potassium 40meq and PO potassium 60meq x 1 * check magnesium * hydrate with IVF ringer's lactate at 125cc/hr * #Hyponatremia: likely due to chronic alcohol abuse. Should improve with hydration with IVF. #Elevated liver enzymes: total bilirubin is 2.1, with AST of 64 and ALT of 36 as well as ALP of 131. Likely due to chronic alchohol abuse. Will monitor #Chronic alcohol abuse: not in acute withdrawal. Doesnt want to undergo detox. Will put on CIWA score as a precaution DVT prophylaxis: low risk, encourage to ambulate Medications at Discharge Home Medications buspirone 10 mg tablet 10 mg PO DAILY 08/21/22 quetiapine 100 mg tablet 100 mg PO QHS 08/21/22 Hospital Course Operations None Procedures None Summary of Care Provided Minutes Spent on Discharge: 40 Hospital Course: TAMMY PLATA, is a 42 M with a PMH as outlined who presents via the ED with a complaint of generalised weakness and and tiredness which had been going on for 8-9 months. 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 He said he feels short of breath also at work and he was worried so he came into the ED. He denies any cough admitted with chest tightness which he attributed to the shortness of breath. He denied any dizziness or lightheadedness, nausea or vomiting or any other symptoms. He admitted to drinking alcohol and said he drank significant amounts of liquor. He also smoked about 2 packs daily. He denied any other drug use. Of note he also admitted to generalized pains in his extremities. Vitals in the ED were VA of 88, temp of 97.8F, RR of 115 and BP of 132/100/ He was saturating at 97% on room air. CBC showed hb of 12.6, wbc of 8.9, platelets of 187. Chemistry showed sodium of 128, potassium of 1.9, bicarb of 35 and cr of 0.92. Total bilirubin was 2.1, AST of 64, ALT of 36 and ALP of 131. CXR showed no acute cardiopulmonary disease. EKG showed prolonged QT. He was admitted to be managed for acute hypokalemia likely due to chronic alcohol abuse. His potassium was replaced aggressively. Potassium came up to 2.9. He was still getting potassium replacement but on the morning of 04/07/2023 patient signed out AGAINST MEDICAL ADVICE. Patient signed out before this hospitalist could evaluate him in the morning. Patient was therefore not seen and evaluated prior to him signing out AMA. Weight / BMI Weight Weight: 223 lb 11.2 oz Body Mass Index (BMI) 28.7 ABG / Lab / Microbiology Data 04/07/23 03:25 04/07/23 03:25 Laboratory: Laboratory Results - last 24 hr 04/06/23 13:25: Sodium 136, Potassium 2.9 L, Chloride 98, Carbon Dioxide 32.0, Anion Gap 6, BUN 5 L, Creatinine 0.61 L, Estim Creat Clear Calc 187.16, Est GFR (MDRD) Af Amer 186, Est GFR (MDRD) Non-Af 154, BUN/Creatinine Ratio 8.1 L, Glucose 146 H, Calcium 6.9 L 04/07/23 03:25: WBC 4.4, RBC 2.50 L, Hgb 10.7 L, Hct 30.1 L, MCV 120.4 H, MCH 42.8 H, MCHC 35.5, RDW Std Deviation 60.2 H, RDW Coeff of Manju 13.7, Plt Count 148 L, MPV 10.0, Immature Gran % (Auto) 0.500, Neut % (Auto) 50.8, Lymph % (Auto) 41.6 H, [place] % (Auto) 3.9, Eos % (Auto) 2.5, Baso % (Auto) 0.7, Absolute Neuts (auto) 2.2, Absolute Lymphs (auto) 1.82, Nucleated RBC % 0, Atypical Lymphocytes RARE, Sodium 135 L, Potassium 2.8 L, Chloride 96 L, Carbon Dioxide 33.0 H, Anion Gap 6, BUN 6 L, Creatinine 0.81, Estim Creat Clear Calc 140.95, Est GFR (MDRD) Af Amer 135, Est GFR (MDRD) Non-Af 112, BUN/Creatinine Ratio 7.4 L, Glucose 150 H, Calcium 8.1 L, Phosphorus 2.4 L, Magnesium 1.9 D/C Instructions Discharge Diet: No restrictions Meaningful Use Info Meaningful Use Diagnoses (Choose all that apply): None applicable Discharge Plan Admission Admit Date/Time: 04/05/23 10:58 Primary Reason for Your Visit: acute hypokalemia Attending Provider: Ramya Shrestha Primary Care Provider: Darlene Granados Primary Discharge Orders/Prescriptions Prescriptions: No Action quetiapine 100 mg tablet 100 mg PO QHS Patient Comments: PT STATES RAN OUT AND HAS NOT TAKEN IN ABOUT 2 MONTHS buspirone 10 mg tablet 10 mg PO DAILY Referrals / Follow Up: Care Physician,Darlene Primary [Primary Care Provider] - Disposition Disposition (needs filled in before D/C Order can be placed): Against Medical Advice Charges/Coding Visit Charges Inpatient E&M: 17627 Disch Hosp >30min
== END 2023-04-07 05:00 | disposition left against medical advice (07) | DRG 425 ==
LOC: ED 10:59 → ICU 12:04
PROVIDERS: Internal Medicine; Admitting Provider Student in an Organized Health Care Education/Training Program; Emergency Provider Emergency Medicine; Visit Provider Student in an Organized Health Care Education/Training Program
DX: E87.6 Hypokalemia (principal); E87.1 Hypo-osmolality and hyponatremia; F10.20 Alcohol dependence, uncomplicated; F17.210 Nicotine dependence, cigarettes, uncomplicated; M79.605 Pain in left leg; M79.604 Pain in right leg; M62.81 Muscle weakness (generalized); Y90.0 Blood alcohol level of less than 20 mg/100 ml
CPT/HCPCS: 71046; 80048; 80053; 82077; 83735; 84100; 84484; 85025; 93005; 94640; 99284; J7030; A4216

== ENCOUNTER 2023-04-08 13:36 | Emergency (ER) | payer MEDICAID, SELFPAY ==
[2023-04-08 13:37] VITALS: BP 137/90; PULSE 106; RESP 16; TEMP 36.3; O2SAT 100; BMI 29.0
--- NOTE | 2023-04-08 13:48 | EX.ED.DYSGE1 ---
HPI History of Present Illness Chief Complaint: Abn Labs Narrative Narrative: Patient presents with regrets from leaving AMA from the hospital yesterday morning. He was admitted for hypokalemia, it was as high as 2.8 when he left. He is a daily drinker, which is likely the reason for his hypokalemia. He still has some numbness and tingling in his fingers but he is much improved and eat tells me he is practically back to baseline. Chest pain or shortness of breath. He is denying any palpitations. PFSH PFS Medical History Anxiety Depression Smoker Home Medications buspirone 10 mg tablet 10 mg PO DAILY 08/21/22 [History Last Taken 04/03/23] quetiapine 100 mg tablet 100 mg PO QHS 08/21/22 [History Last Taken Unknown] buspirone 10 mg tablet 10 mg PO BID #20 tabs 04/08/23 [Rx Last Taken Unknown] potassium chloride 20 mEq tablet,extended release 20 meq PO BID #20 tabs 04/08/23 [Rx Last Taken Unknown] quetiapine 100 mg tablet (Seroquel) 100 mg PO QHS #20 tabs 04/08/23 [Rx Last Taken Unknown] Allergy/AdvReac Type Severity Reaction Status Date / Time No Known Allergies Allergy Verified 04/08/23 13:38 Social History Smoking Status: Current every day smoker tobacco type: cigarettes ROS ROS ED ROS Narrative Past medical history: Reviewed Medications: Reviewed Social history: Noncontributory Review of systems: All systems negative except as indicated General: No fever Eyes: No visual changes ENT: No upper airway congestion, normal voice Neck: No neck pain Cardiovascular: No chest pain Respiratory: No shortness of breath or cough Gastrointestinal: No abdominal pain, nausea vomiting or diarrhea Genitourinary: No dysuria Musculoskeletal: Denies myalgias no difficulty with ambulation Skin: No rash Neurological: No memory loss, confusion or any focal weakness. Some paresthesias as in HPI EXAM Physical Exam Narrative Exam Narrative: Physical exam General: She is comfortable Head: Normocephalic, Atraumatic Eyes: Conjunctiva not pale ENT: Moist mucous membranes Neck: Supple, Nontender, No lymphadenopathy Cardiovascular: Regular rate, Regular rhythm Respiratory: No distress, CTA bilaterally Abdomen: Soft, Nontender, Nondistended Back: Nontender, Normal Inspection. Negative for: CVA tenderness Extremities: Nontender, No edema Skin: Normal color, No rash Neurological: Alert, Normal Strength, Normal Sensation Const Vital Signs: 04/08/23 13:37 04/08/23 13:36 Temperature 97.4 F L Temperature Source Temporal Pulse Rate 106 H Respiratory Rate 16 Respiratory Pattern Normal Blood Pressure 137/90 H Blood Pressure Mean 105 Pulse Ox 100 Oxygen Delivery Method Room Air MDM MDM MDM Narrative Medical decision making narrative: I do not believe the patient needs further blood work other than a repeat basic metabolic panel. Patient's found to be hypokalemic, we will replenish his potassium. I will give him potassium prescription for home, he is also out of his Seroquel at home and I will give him a refill he does have an appointment in 10 days with his PCP. Lab Data Labs: Laboratory Results - last 24 hr 04/08/23 13:53 Sodium 135 L Potassium 2.9 L Chloride 94 L Carbon Dioxide 35.0 H Anion Gap 6 BUN 3 L Creatinine 0.82 Estim Creat Clear Calc 139.23 Est GFR (MDRD) Af Amer 134 Est GFR (MDRD) Non-Af 111 BUN/Creatinine Ratio 3.7 L Glucose 181 H Calcium 8.6 Discharge Plan Triage Chief Complaint: Abn Labs ED Provider: Pete Camejo Dx/Rx/DC Orders Clinical Impression: Acute hypokalemia, Acute hyponatremia, Alcoholism Instructions: ED Hypokalemia Prescriptions: New buspirone 10 mg tablet 10 mg PO BID Qty: 20 0RF quetiapine [Seroquel] 100 mg tablet 100 mg PO QHS Qty: 20 0RF potassium chloride 20 mEq tablet extended release 20 meq PO BID Qty: 20 0RF No Action quetiapine 100 mg tablet 100 mg PO QHS Patient Comments: PT STATES RAN OUT AND HAS NOT TAKEN IN ABOUT 2 MONTHS buspirone 10 mg tablet 10 mg PO DAILY Primary Care Provider: Care Physician,No Primary Referrals: Care Physician,No Primary [Primary Care Provider] - 3-5 Days Disposition Disposition: Home, Self Care
[2023-04-08 14:12] LABS: Anion Gap 6 (5-15); BUN 3 mg/dL (7-18); BUN/Creat Ratio 3.7 RATIO (10-20); Calcium,Total 8.6 mg/dL (8.5-10.1); Chloride 94 mmol/L (98-107); Creatinine, Serum 0.82 mg/dL (0.70-1.30); EST Glomerular Filtration Rate 111 mL/min (>60); Est Glom Filt Rate - Afr Amer 134 mL/min (>60); Estimated Creatinine Clearance 139.23 ml/min; Glucose 181 mg/dL (74-106); Potassium 2.9 mmol/L (3.5-5.1); Sodium Level 135 mmol/L (136-145)
[2023-04-08] MEDS: Potassium Chloride Oral Tablet 20 MEQ 40 MEQ PO (14:36)
[2023-04-08 14:39] VITALS: BP 128/74; PULSE 68; RESP 16; O2SAT 97
== END 2023-04-08 14:41 | disposition home or self-care (01) ==
LOC: ED 14:02
PROVIDERS: Emergency Provider Emergency Medicine; Visit Provider Emergency Medicine
DX: E87.6 Hypokalemia (principal); F10.20 Alcohol dependence, uncomplicated; E87.1 Hypo-osmolality and hyponatremia; F17.210 Nicotine dependence, cigarettes, uncomplicated
CPT/HCPCS: 80048; 99282

== ENCOUNTER 2023-04-17 08:04 | Emergency (ER) | payer MEDICAID, SELFPAY ==
[2023-04-17 08:04] VITALS: BP 146/91; PULSE 104; RESP 16; TEMP 35.5; O2SAT 99; BMI 29.1
--- NOTE | 2023-04-17 08:20 | EX.ED.DYSGE1 ---
HPI History of Present Illness Chief Complaint: General Illness Informant: patient Narrative Narrative: Patient presents because he just did not feel well and had to leave work. He states he has mild nausea but this is not uncommon. He just does not feel great. He states this is not uncommon for him in the morning. He admits that he did drink more alcohol this weekend and he normally does because he was celebrating his first paycheck from work. He states he is on and is taking his potassium supplements. He has cut back a little bit on his drinking other than this weekend. He is drinking milk and trying to eat healthier. He states he does not feel as though his potassium is low again. He just does not feel well. He states he would not come in to be seen except he left work and they need a work note to allow him back. He is not having abdominal pain. No vomiting. No chest pain syncope or near syncope. [facility] Medical History Acute electrocardiogram changes Acute hypokalemia Acute hyponatremia Alcoholism Anxiety Depression Muscle weakness Smoker Home Medications buspirone 10 mg tablet 10 mg PO DAILY 08/21/22 [History Last Taken 04/03/23] quetiapine 100 mg tablet 100 mg PO QHS 08/21/22 [History Last Taken Unknown] buspirone 10 mg tablet 10 mg PO BID #20 tabs 04/08/23 [Rx Last Taken Unknown] potassium chloride 20 mEq tablet,extended release 20 meq PO BID #20 tabs 04/08/23 [Rx Last Taken Unknown] quetiapine 100 mg tablet (Seroquel) 100 mg PO QHS #20 tabs 04/08/23 [Rx Last Taken Unknown] Allergy/AdvReac Type Severity Reaction Status Date / Time No Known Allergies Allergy Verified 04/17/23 08:04 Social History Smoking Status: Current every day smoker tobacco type: cigarettes ROS ROS ED ROS Narrative A complete review of systems was performed and is negative except as documented in the history of present illness. Some specific details below. Constitutional: No recent fevers or chills. He does have just a generalized sense of malaise. EYE: No visual complaints or pain. ENT: No difficulty swallowing. No swelling. No pain. CV: No chest pain or palpitations. He has not been syncopal or near syncopal. Respiratory: No dyspnea. No hemoptysis. No difficulty taking breaths. He does not feel short of breath. GI: He has mild nausea but but he is still able to drink and eat. No vomiting or diarrhea. No blood in the stool. : No frequency dysuria or hematuria. Musculoskeletal: No recent trauma. No pains. Skin: No rash. Nondiaphoretic. Neuro: No focal weakness or numbness. Endocrine: No polyuria or polydipsia. EXAM Physical Exam Narrative Exam Narrative: CONSTITUTIONAL: Patient is nontoxic in appearance. The patient looks comfortable. HEENT: No notable trauma. Mucous membranes do look mildly dry. He states ever since he started the potassium that gives him a dry mouth.. No sinus tenderness. No indication of pain with swallowing. EYES: No conjunctival injection. No proptosis. CARDIOVASCULAR: Regular rate. Regular rhythm. No notable murmur. No JVD. His heart rate is about 90 (2x45) when I count for 30 seconds. RESPIRATORY: No respiratory distress. Breathing is unlabored. No wheezes. No rhonchi. No rales. No pain with a deep breath. GASTROINTESTINAL: Not distended. Bowel sounds are normal. No tenderness. No guarding. No rebound. No palpable mass. No bruit. GENITOURINARY: No tenderness over the bladder. No CVA tenderness. MUSCULOSKELETAL: Atraumatic. No peripheral edema. No cord. No tenderness. No asymmetry. NEUROLOGICAL: Patient is alert and appropriate. No focal deficit noted. There is no confusion or lethargy. SKIN: No noted rashes. No diaphoresis. PSYCHIATRIC: Patient is calm. Mood is appropriate. Const Vital Signs: 04/17/23 08:04 04/17/23 08:09 Temperature 95.9 F L Temperature Source Temporal Pulse Rate 104 H Respiratory Rate 16 Respiratory Effort Normal Non-Labored Blood Pressure 146/91 H Blood Pressure Mean 109 Pulse Ox 99 Oxygen Delivery Method Room Air MDM MDM MDM Narrative Medical decision making narrative: I talked to this patient about starting some IV fluids as he does look a little dry. I would recommend checking his electrolytes because he has had very significant electrolyte abnormalities recently. I just admitted him for these. But he states he does not feel that they are low. He does not want to get poked again. He would not come in other than his work requiring it. He is able to repeat back and he even recalls some of the dangers of low potassium that I had talked to him about when I admitted him. He is aware of the risks and benefits. He can repeat all these back to me. I cannot force him to have this evaluation done but I can recommend it. With his poor compliance, alcoholism, history of significant electrolyte abnormalities I think he is at risk of not knowing these results. He does not appear to be intoxicated. There is no reason he cannot make his own decisions. He appears to have full competency to do this. Discharge Plan Triage Chief Complaint: General Illness ED Provider: Edenilson Mo Dx/Rx/DC Orders Clinical Impression: Left against medical advice, History of hypokalemia, Generalized weakness, Dehydration Instructions: Dehydration, ED Hypokalemia Prescriptions: No Action quetiapine 100 mg tablet 100 mg PO QHS Patient Comments: PT STATES RAN OUT AND HAS NOT TAKEN IN ABOUT 2 MONTHS buspirone 10 mg tablet 10 mg PO DAILY buspirone 10 mg tablet 10 mg PO BID Qty: 20 0RF quetiapine [Seroquel] 100 mg tablet 100 mg PO QHS Qty: 20 0RF potassium chloride 20 mEq tablet extended release 20 meq PO BID Qty: 20 0RF Stand Alone Forms: ED Work / School Excuse Primary Care Provider: Care Physician,No Primary Referrals: Care Physician,No Primary [Primary Care Provider] - Activity Restrictions/Additional Instructions: Please feel free to return at any time for evaluation. Make sure you continue to take your potassium. Continue to decrease alcohol intake. Disposition Disposition: Against Medical Advice
== END 2023-04-17 08:39 | disposition left against medical advice (07) ==
LOC: ED 08:33
PROVIDERS: Emergency Provider Emergency Medicine; Visit Provider Emergency Medicine
DX: Z53.29 Procedure and treatment not carried out because of patient's decision for other reasons (principal); F10.20 Alcohol dependence, uncomplicated; F17.210 Nicotine dependence, cigarettes, uncomplicated; E87.6 Hypokalemia; E86.0 Dehydration
CPT/HCPCS: 99282

== ENCOUNTER 2023-07-14 23:17 | Emergency (ER) | payer MEDICAID, SELFPAY ==
[2023-07-14 23:18] VITALS: PULSE 106; RESP 18; TEMP 36.6; O2SAT 99; BMI 27.1
[2023-07-14 23:22] VITALS: BP 92/61
[2023-07-14] MEDS: 0.9% Normal Saline (1000mL) 1,000 ML 999 ML IV (23:49)
[2023-07-14 23:54] VITALS: BP 124/105; PULSE 128; PULSE 134; PULSE 60
[2023-07-15] VITALS (14 sets, daily range): BP systolic 91–164; BP diastolic 69–125; PULSE 60–120; RESP 12–29; TEMP 36.5; O2SAT 92–100
[2023-07-15] MEDS: Etomidate 20 MG/10 ML Vial IV (00:08)
[2023-07-15] MEDS: Rocuronium Bromide 50 MG/5 ML Vial IV (00:11)
--- NOTE | 2023-07-15 00:15 | ED.RN ---
upon intubation pt pulling at tubes risking harm to himself. restraints applied.
--- NOTE | 2023-07-15 00:17 | EDS_ITS ---
HPI History of Present Illness Chief Complaint: General Illness Detail of Chief Complaint: General illness and requesting detox Informant: patient Onset/Context/Timing Onset: Days Context: Gradual Onset and Sudden Onset (Today he began to complain of feet pain) Timing: Continuous Quality: General weakness and illness and feet pain Location: Not applicable Current Severity: Mild Maximum Severity: Moderate Worsened by: Attempt to detox at home Relieved by: Nothing Associated Symptoms Associated Symptoms: Nausea and diarrhea this morning Narrative Narrative: Patient is a 43-year-old male. He is not compliant with his psychiatric meds. He Was at a Detox Program for 1 Month 2019. He Was at, [facility] [place]. 3 to 4 months after he was released he began to drink. He was living with his girlfriend at the time. Then he began to [place] a client of the addiction treatment center and began to drink heavily. Approximately 1 week ago he decreased from 1/5 of vodka to 1 pint of vodka a day. He is only had 1 drink today. He denies fever or chills. He denies headache. He denies chest pain or shortness of breath. He does complain of nausea and had episode of diarrhea this morning. He did not notice black or maroon-colored stool. He states his urine is darker than normal. He is not urinating as much. Prior similar symptoms: Yes Recent Illness/Hospitalization: No PFSH PFSH Medical History Acute electrocardiogram changes Acute hypokalemia Acute hyponatremia Alcoholism Anxiety Depression Muscle weakness Smoker Home Medications buspirone 10 mg tablet 10 mg PO TID 08/21/22 [History Last Taken 04/03/23] quetiapine 100 mg tablet 100 mg PO QHS 08/21/22 [History Last Taken Unknown] buspirone 10 mg tablet 10 mg PO BID #20 tabs 04/08/23 [Rx Last Taken Unknown] quetiapine 100 mg tablet (Seroquel) 100 mg PO QHS #20 tabs 04/08/23 [Rx Last Taken Unknown] Allergy/AdvReac Type Severity Reaction Status Date / Time No Known Allergies Allergy Verified 04/17/23 08:04 Social History Smoking Status: Current every day smoker tobacco type: cigarettes ROS ROS ED Constitutional Constitutional ED: Reports sweats; Denies chills, fever(s), subjective or weight loss Eyes Eyes: Denies blurry vision, change in vision or diplopia ENT ENT ED: Denies ear pain, rhinorrhea or sore throat Cardiovascular Cardiovascular: Reports palpitations; Denies chest pain, orthopnea, paroxysmal nocturnal dyspnea or racing heartbeat Respiratory/Chest Respiratory/Chest: Reports cough; Denies dyspnea, dyspnea on exertion, orthopnea, paroxysmal nocturnal dyspnea or sputum Gastrointestinal Gastrointestinal: Reports diarrhea and nausea; Denies abdominal pain or vomiting Genitourinary Genitourinary ED: Denies dysuria, hematuria or urinary frequency Musculoskeletal Musculoskeletal: Reports other Details: Feet pain and swelling left foot ; Denies arthralgias or myalgias Integumentary Denies rash Neurologic Neurologic: Reports weakness; Denies headache(s) Psychiatric Psychiatric: Reports anxiety and depression; Denies suicidal ideation Hematologic/Lymphatic Hematologic/Lymphatic: Reports systems reviewed and no addt'l complaints, except as documented EXAM Physical Exam Const Vital Signs: 07/14/23 23:18 07/14/23 23:22 07/14/23 23:22 Temperature 98 F Temperature Source Oral Pulse Rate 106 H Pulse Rate [11] Pulse Rate [4] Pulse Rate [9] Respiratory Rate 18 Respiratory Pattern Normal Blood Pressure 92/61 Blood Pressure [4] Blood Pressure Mean 71 Pulse Ox 99 Oxygen Delivery Method Room Air Fraction of Inspired Oxygen (FIO2) 07/14/23 23:54 07/15/23 00:30 Temperature Temperature Source Pulse Rate 110 H Pulse Rate [11] 134 H Pulse Rate [4] 128 H Pulse Rate [9] 60 Respiratory Rate 16 Respiratory Pattern Normal Blood Pressure Blood Pressure [4] 124/105 H Blood Pressure Mean Pulse Ox 99 Oxygen Delivery Method Room Air Fraction of Inspired Oxygen (FIO2) 60 Positive well nourished, well developed, obese and unkempt Constitutional Narrative: Patient does not appear well. He appears jaundiced. There is mottling of his upper extremities. His feet are pale. General Appearance ED: unkempt, well developed and pallor; Negative for cyanotic or diaphoretic Nutritional Appearance: obese HEENT Reports TM's clear and dry mucous membranes HEENT Narrative: Poor dentition. Tympanic Membrane ED: Yes TM's clear Mouth ED: Yes dry mucous membranes Mouth: dry mucous membranes Eyes PERRL and EOMs intact bilaterally General Eye ED: Yes scleral icterus; Negative for pale conjunctiva Neck no lymphadenopathy, supple and no JVD Chest Wall inspection of chest normal Resp normal respiratory effort and clear to auscultation bilaterally Cardio regular rhythm, S1 normal heart sound, S2 normal heart sound and no murmurs Rate: tachycardic GI normal to inspection, nondistended, normoactive bowel sounds and non-tender; Negative for non-distended, hepatosplenomegaly or no masses Inspection: abdominal distention Auscultation: hypoactive bowel sounds Palpation: soft Back/Spine no CVA tenderness Extremity Extremity Narrative: Stigmata of peripheral arterial disease. General Extremety ED: Yes edema General Extremity: edema Neuro oriented x3, CN's II-XII intact bilaterally and no sensory deficits noted Neuro Narrative: There is no clonus or Babinski sign. DTRs are of the bicep, brachialis, tricep, patella and ankle are 1+. Sensorium / Orientation: alert Motor Exam: strength 5/5 throughout Psych mental status grossly normal Appearance: unkempt Mood & Affect: Negative for depressed or anxious Skin no rashes or lesions noted and no wounds General Skin Exam: jaundice and pallor MDM MDM MDM Narrative Medical decision making narrative: Because was concerned that patient is jaundiced more blood work that is needed for admission for detox was obtained. Because of his history of hypokalemia and palpitations tachycardia EKG was obtained. I was handed the EKG patient is noted to have wide complex QRS and has appearance of right bundle. There also is evidence of possible torsades in the middle of the EKG. There is significant ST-T wave changes noted. Secondary was asked for old 1. The QRS duration is much more prolonged than prior and he did not have the RR prime in V1 and V2. On my way to evaluate patient after looking at the EKG nursing staff called a CODE BLUE. Patient had a cardiorespiratory arrest. CPR was initiated by nursing staff. Patient was being bagged by me and the respiratory therapist. IV was established. Because of his history of hypokalemia and concern for torsades he received magnesium, bicarb and epinephrine. Of note there were no pulses prior to administration of meds. Please see nursing notes for times and administration of meds. Since patient has spontaneous return of circulation ice packs are placed in his groin and axilla. He received 20 mg of etomidate 50 mg a rock and 10 mg of propofol to facilitate intubation since his teeth were clenched. He was strickland ccessfully debated with a 7.5 endotracheal tube. OG was placed by nursing staff and temperature probe Euceda was placed by nursing staff. Arrangements are being made for transfer since we do not have capacity for hypothermia. Lab Data Attestation: I reviewed the patient's lab results. Lab results narrative: Alcohol was nondetected. PTT is slightly elevated. Labs: Laboratory Results - last 24 hr 07/14/23 07/14/23 07/15/23 23:55 23:55 00:20 WBC Cancelled Corrected WBC Cancelled RBC Cancelled Hgb Cancelled Hct Cancelled MCV Cancelled MCH Cancelled MCHC Cancelled RDW Std Deviation Cancelled RDW Coeff of Manju Cancelled Plt Count Cancelled MPV Cancelled Immature Gran % (Auto) Cancelled Neut % (Auto) Cancelled Lymph % (Auto) Cancelled [place] % (Auto) Cancelled Eos % (Auto) Cancelled Baso % (Auto) Cancelled Absolute Neuts (auto) Cancelled Absolute Lymphs (auto) Cancelled Total Counted Cancelled Neutrophils % (Manual) Cancelled Band Neutrophils % Cancelled Lymphocytes % (Manual) Cancelled Monocytes % (Manual) Cancelled Eosinophils % (Manual) Cancelled Basophils % (Manual) Cancelled Metamyelocytes % Cancelled Myelocytes % Cancelled Promyelocytes % Cancelled Blast Cells % Cancelled Plasma Cell % (Manual) Cancelled Other Cells % Cancelled Nucleated RBC % Cancelled Nucleated RBCs/100 WBC Cancelled Differential Comment Cancelled Diff Path Review Cancelled Hypersegmented Neuts Cancelled Atypical Lymphocytes Cancelled Reactive Lymphocytes Cancelled Smudge Cells Cancelled Toxic Granulation Cancelled Toxic Vacuolation Cancelled Dohle Bodies Cancelled Cornell Rods Cancelled Platelet Estimate Cancelled Plt Morphology Comment Cancelled RBC Morphology Cancelled Cancelled Polychromasia Cancelled Hypochromasia Cancelled Poikilocytosis Cancelled Basophilic Stippling Cancelled Anisocytosis Cancelled Microcytosis Cancelled Macrocytosis Cancelled Spherocytes Cancelled Sickle Cells Cancelled Target Cells Cancelled Tear Drop Cells Cancelled Ovalocytes Cancelled Stomatocytes Cancelled [place] Bodies Cancelled Franc Cells Cancelled Bite Cells Cancelled Crenated Cell Cancelled Acanthocytes (Spur) Cancelled Rouleaux Cancelled Schistocytes Cancelled PT Cancelled INR Cancelled APTT Sodium Cancelled Potassium Cancelled Chloride Cancelled Carbon Dioxide Cancelled Anion Gap Cancelled BUN Cancelled Creatinine Cancelled Estim Creat Clear Calc Cancelled Est GFR (MDRD) Af Amer Cancelled Est GFR (MDRD) Non-Af Cancelled BUN/Creatinine Ratio Cancelled Glucose Cancelled Lactic Acid Calcium Cancelled Magnesium Total Bilirubin Cancelled AST Cancelled ALT Cancelled Alkaline Phosphatase Cancelled Troponin I High Sens Total Protein Cancelled Albumin Cancelled Globulin Cancelled Albumin/Globulin Ratio Cancelled Lipase Urine Opiates Screen NEGATIVE Urine Methadone Screen NEGATIVE Ur Barbiturates Screen NEGATIVE Ur Phencyclidine Scrn NEGATIVE Ur Amphetamines Screen NEGATIVE MDMA (Ecstasy) Screen NEGATIVE U Benzodiazepines Scrn NEGATIVE Urine Cocaine Screen NEGATIVE U Cannabinoids Screen NEGATIVE Ur Drug Screen Comment Ethyl Alcohol Cancelled 07/15/23 07/15/23 07/15/23 00:30 00:34 00:53 WBC 20.9 H Corrected WBC RBC 2.89 L Hgb 12.1 L Hct 34.7 L MCV 120.1 H MCH 41.9 H MCHC 34.9 RDW Std Deviation 85.5 H RDW Coeff of Manju 19.0 H Plt Count 189 MPV 10.8 Immature Gran % (Auto) Neut % (Auto) Not Reportable Lymph % (Auto) [place] % (Auto) Eos % (Auto) Baso % (Auto) Absolute Neuts (auto) 14.4 H Absolute Lymphs (auto) 5.65 H Total Counted 100 Neutrophils % (Manual) 67 Band Neutrophils % 2 Lymphocytes % (Manual) 27 Monocytes % (Manual) 1 Eosinophils % (Manual) 1 Basophils % (Manual) Metamyelocytes % Myelocytes % 2 H Promyelocytes % Blast Cells % Plasma Cell % (Manual) Other Cells % Nucleated RBC % Nucleated RBCs/100 WBC Differential Comment SCANNED Diff Path Review May foll Hypersegmented Neuts Atypical Lymphocytes Reactive Lymphocytes 3+ Smudge Cells Toxic Granulation Toxic Vacuolation Dohle Bodies Cornell Rods Platelet Estimate Plt Morphology Comment RBC Morphology Polychromasia Hypochromasia Poikilocytosis Basophilic Stippling Anisocytosis 2+ Microcytosis Macrocytosis Spherocytes Sickle Cells Target Cells Tear Drop Cells Ovalocytes Stomatocytes [place] Bodies Franc Cells Bite Cells Crenated Cell Acanthocytes (Spur) Rouleaux Schistocytes PT INR APTT 41.1 H Sodium 136 Potassium 1.6 L* Chloride 86 L Carbon Dioxide 20.0 L Anion Gap 30 H BUN 12 Creatinine 1.44 H Estim Creat Clear Calc 78.49 Est GFR (MDRD) Af Amer 70 Est GFR (MDRD) Non-Af 57 L BUN/Creatinine Ratio 8.3 L Glucose 225 H Lactic Acid Calcium 7.3 L Magnesium 4.9 H Total Bilirubin 3.80 H AST 86 H ALT 35 Alkaline Phosphatase 199 H Troponin I High Sens 8 Total Protein 5.9 L Albumin 2.2 L Globulin 3.7 Albumin/Globulin Ratio 0.6 L Lipase 28 Urine Opiates Screen Urine Methadone Screen Ur Barbiturates Screen Ur Phencyclidine Scrn Ur Amphetamines Screen MDMA (Ecstasy) Screen U Benzodiazepines Scrn Urine Cocaine Screen U Cannabinoids Screen Ur Drug Screen Comment Ethyl Alcohol < 3.0 07/15/23 01:00 WBC Corrected WBC RBC Hgb Hct MCV MCH MCHC RDW Std Deviation RDW Coeff of Manju Plt Count MPV Immature Gran % (Auto) Neut % (Auto) Lymph % (Auto) [place] % (Auto) Eos % (Auto) Baso % (Auto) Absolute Neuts (auto) Absolute Lymphs (auto) Total Counted Neutrophils % (Manual) Band Neutrophils % Lymphocytes % (Manual) Monocytes % (Manual) Eosinophils % (Manual) Basophils % (Manual) Metamyelocytes % Myelocytes % Promyelocytes % Blast Cells % Plasma Cell % (Manual) Other Cells % Nucleated RBC % Nucleated RBCs/100 WBC Differential Comment Diff Path Review Hypersegmented Neuts Atypical Lymphocytes Reactive Lymphocytes Smudge Cells Toxic Granulation Toxic Vacuolation Dohle Bodies Cornell Rods Platelet Estimate Plt Morphology Comment RBC Morphology Polychromasia Hypochromasia Poikilocytosis Basophilic Stippling Anisocytosis Microcytosis Macrocytosis Spherocytes Sickle Cells Target Cells Tear Drop Cells Ovalocytes Stomatocytes [place] Bodies [place] Cells Bite Cells Crenated Cell Acanthocytes (Spur) Rouleaux Schistocytes PT INR APTT Sodium Potassium Chloride Carbon Dioxide Anion Gap BUN Creatinine Estim Creat Clear Calc Est GFR (MDRD) Af Amer Est GFR (MDRD) Non-Af BUN/Creatinine Ratio Glucose Lactic Acid 18.0 H* Calcium Magnesium Total Bilirubin AST ALT Alkaline Phosphatase Troponin I High Sens Total Protein Albumin Globulin Albumin/Globulin Ratio Lipase Urine Opiates Screen Urine Methadone Screen Ur Barbiturates Screen Ur Phencyclidine Scrn Ur Amphetamines Screen MDMA (Ecstasy) Screen U Benzodiazepines Scrn Urine Cocaine Screen U Cannabinoids Screen Ur Drug Screen Comment Ethyl Alcohol ABG Data ABG results: ABG 07/15/23 07/15/23 00:48 02:11 Specimen Type ART ART Sample Site R Radial R Radial pH 7.11 L* 7.42 Bicarbonate Actual 21.1 L 28.3 H Total CO2 23 30 Base Excess -8 L 4 H O2 Saturation 99 95 O2 % 60.0 60.0 ABG pCO2 67.2 H* 44.0 ABG pO2 175 H 73 L Justino Test Positive Positive Respiration Rate 16 16 O2 Delivery Device Adult Vent Adult Vent Vent Mode AC AC Tidal Volume 500.0 500.0 POC PEEP 5 5 Crit Call To/Read Back Yes Blood Gas Notified Whom dr morales Blood Gas Notified Time 00:50:20 Radiography Chest X-Ray - ED: 1 View (Endotracheal tube is in proper position there is no evidence of pneumothorax or effusion. Cardiac silhouette and size are normal. Perihilar region for supine film is normal. No obvious abnormality with regards to the osseous structures. This was a single portable view interpreted by me at 1225.) and Read by ED Physician (KUB was obtained and reveals proper position of the OG tube. There is no evidence of pneumo peritoneum. This was independent reviewed interpreted by me at 1222 as well.) Diagnostic Testing: Clinical Impression(s) from Imaging Studies KUB X-Ray 07/15/23 00:18 IMPRESSION: Enteric tube projects subdiaphragmatic within the stomach. Electronically Signed: Alfredo Duron MD at 1:00 EST , Chest X-Ray 07/15/23 00:20 IMPRESSION: Support apparatus as above No radiographic evidence of acute cardiopulmonary disease. Electronically Signed: Alfredo Duron MD at 0:59 EST , Chest CTA 07/15/23 00:56 IMPRESSION: No pulmonary embolism or evidence of acute airspace disease. Mild peribronchial thickening as can be seen with bronchitis/bronchiolitis. Hepatic steatosis. Suggestion of hepatomegaly. Mild calcified coronary atherosclerosis. Electronically Signed: Alfredo Duron MD at 2:45 EST , EKG Initial EKG: Attestation: I personally reviewed and interpreted this EKG as follows: Interpretation: Sinus Tachycardia (Rate is 119. TX interval 168 ms. Cures duration 98 ms. There appears to be evidence of V. tach/torsades. Patient also has alternating wide complexes and narrow complexes.) Follow-up EKG: Attestation: I personally reviewed and interpreted this EKG as follows: Interpretation: Sinus Tachycardia (Rate is 112. Patient has a right bundle branch block which is new. TX interval is 170 ms. QRS duration 144 ms per QT duration 436 ms. [place] is normal. There is no acute ischemic changes.) Management Discussion w/another healthcare provider: Manager Sourcing (Dr. Patino requested bicarb drip after I informed him of ABG results and requested CTA of the chest.) and Radiologist (Radiologist informing that patient had a nondisplaced sternal fracture.) Additional Tests and Interventions Additional Tests or Interventions: Spoke with Dr. Patino at 0145. He was informed that patient is getting potassium. He also requested potassium via OG. 40 mEq was ordered. Treatment and Re-Evaluation :: Spoke with Romi the nurse for [facility] transfer center. She will contact ICU since they do have ICU beds available. Procedures Intubations Intubation Method: orotracheal Intubation Verification: Positive color change Intubation Complications: no complications Other Procedures Procedure(s): 1. Supervision of CPR 2. Ventilation by [id number] by me and respiratory therapist 3. Old trach in the [place] by me 4. Insertion of OG and Euceda by nursing staff Critical Care Time Critical Care Time: Yes Critical care time (excluding procedures): 30-74 minutes (32), Including time spent: (History, physical, documentation, review of prior records,), Discussing w/Consultants (Discussed case with the director of respiratory therapy at [facility], [facility], Dr. Patino who accepted patient.), Arranging Admission or Transfer and Performing Direct Patient Care at Bedside (Assisted bag valve ventilation prior to intubation, ACLS algorithm for torsades/V-fib and pulseless electrical activity) Discharge Plan Triage Chief Complaint: General Illness ED Provider: Gene Morales Dx/Rx/DC Orders Clinical Impression: Cardiopulmonary arrest with successful resuscitation, Acute respiratory failure with hypoxia and hypercapnia, Torsades de pointes, Acute hypokalemia, Acidosis, lactic, Leukocytosis, Sternal fracture Prescriptions: No Action quetiapine 100 mg tablet 100 mg PO QHS Patient Comments: PT STATES RAN OUT AND HAS NOT TAKEN IN ABOUT 2 MONTHS buspirone 10 mg tablet 10 mg PO TID buspirone 10 mg tablet 10 mg PO BID Qty: 20 0RF quetiapine [Seroquel] 100 mg tablet 100 mg PO QHS Qty: 20 0RF Primary Care Provider: Care Physician,No Primary Referrals: Care Physician,No Primary [Primary Care Provider] - Disposition Disposition: Acute Care Hospital Discharge Location: [facility]
--- NOTE | 2023-07-15 00:18 | RAD_ITS ---
INDICATION: NG Insertion EXAMINATION/TECHNIQUE: X-RAY - XR Abdomen 1 View COMPARISON: Chest radiograph on same FINDINGS: BOWEL GAS PATTERN: Enteric tube is subdiaphragmatic within the stomach. Prominent air-filled colon partially seen. FREE AIR: Not well assessed on a supine view. ORGANOMEGALY: Not seen. CALCIFICATIONS: No concerning calcifications. LOWER CHEST: No acute pathology. BONES AND SOFT TISSUES: No acute pathology. RAD/Abdomen Single View (Portable) IMPRESSION: Enteric tube projects subdiaphragmatic within the stomach. Electronically Signed: Alfredo Duron MD at 1:00 EST ,
--- NOTE | 2023-07-15 00:20 | RAD_ITS ---
INDICATION: Intubation EXAMINATION/TECHNIQUE: X-RAY - XR Chest 1 View COMPARISON: None. FINDINGS: LINES/DEVICES: Endotracheal tube 5.1 cm above the chilo. Enteric tube extends subdiaphragmatic off the inferior study margin.. LUNGS: No consolidation, edema or effusion. No pneumothorax. MEDIASTINUM AND CARDIOVASCULAR STRUCTURES: Cardiac silhouette not enlarged. BONES AND SOFT TISSUES: Unremarkable. RAD/Chest 1 View (Portable) IMPRESSION: Support apparatus as above No radiographic evidence of acute cardiopulmonary disease. Electronically Signed: Alfredo Duron MD at 0:59 EST ,
--- NOTE | 2023-07-15 00:47 | ED.RN ---
CALLED [facility], CONTACT LISTED ON CHART. GOT VM W/A MSG STATING THIS MAILBOX CANNOT RECEIVE NEW MESSAGES.
[2023-07-15 00:52] LABS: Allen Test Positive; Base Excess -8 mmol/L (-2 to +2); Bicarbonate 21.1 mmol/L (22-26); Blood Gas Specimen Type ART; Mode AC; O2 Delivery Device Adult Vent; PEEP 5; PO2 175 mmHG (75-100); RR 16; SITE R Radial; SO2 99 % (95-99); Total Carbon Dioxide 23 mmol/L; pCO2 67.2 mmHg (35-45); pH 7.11 (7.35-7.45)
[2023-07-15 00:55] LABS: Alcohol, Blood (Medical)-Serum < 3.0 mg/dL
--- NOTE | 2023-07-15 00:56 | CT_ITS ---
STUDY: CTA CHEST REASON FOR EXAM: Male, 43 years old. Hypoxia, cardiac arrest RADIATION DOSAGE (If Supplied By Facility): CTDIvol = ( 20.83 ) mGy, DLP = ( 518.51 ) mGycm TECHNIQUE: The examination was performed with the intravenous administration of IV 100mL [id number]-370. Post-processing of the angiographic images was performed, with multiplanar reformation and 3D reconstruction. Individualized dose optimization techniques were used for this CT. COMPARISON: Chest radiograph December 14, 2023. FINDINGS: Unremarkable thyroid. Endotracheal tube tip is above the chilo. Enteric tube extends into the stomach Normal enhancement of the bilateral pulmonary arteries. There is no demonstrated pulmonary embolism. No main pulmonary arterial enlargement No aortic dissection or aneurysmal dilatation. No cardiomegaly or pericardial effusion. Mild calcified coronary atherosclerosis. No mediastinal or hilar adenopathy. Mild bilateral peribronchial thickening. No consolidation, effusion, pneumothorax. Mild dependent atelectasis Normal osseous structures. Hepatic steatosis. Suggestion of hepatomegaly. CT/CTA Chest W/WO Contrast IMPRESSION: No pulmonary embolism or evidence of acute airspace disease. Mild peribronchial thickening as can be seen with bronchitis/bronchiolitis. Hepatic steatosis. Suggestion of hepatomegaly. Mild calcified coronary atherosclerosis. Electronically Signed: Alfredo Duron MD at 2:45 EST ,
--- OUTSIDE RECORDS SUMMARY | 2023-07-15 00:58 | XMS RPT_ITS | CCD ---
Author Name Unknown Address [address] [place] [address] Organization [facility] Care Team Providers Care Building Certifier Name Role Phone Unavailable Primary Care Provider Unavailmelodie Julio LIQUOR STORES AND AGENCIES SUPERVISOR.WRAPPING CLERK, ZEE, Arun Primary Care Provider CECIL SALINAS Attending Unavailable ARUN JULIO Referring Unavailable ARUN JULIO Primary Care Unavailable ARUN JULIO Referring Unavailable ARUN JULIO Primary Care Unavailable CECIL SALINAS Attending Unavailable Medications Current Medications Medication Drug Class(es) Dates Sig (Normalized) Sig (Original) busPIRone hydrochloride 10 mg oral tablet (4 sources) Start: 04-07-2023 End: 07-06-2023 take 1 tablet by mouth three times daily busPIRone (BUSPAR) 10 mg tablet Take 1 tablet by mouth three times a day. 270 tablet 0 04/07/2023 07/06/2023 Active Completed/Discontinued Medications Medication Drug Class(es) Dates Sig (Normalized) Sig (Original) hydrOXYzine pamoate 25 mg oral capsule (2 sources) Antihistamine Start: 08-04-2019 End: 08-04-2019 hydrOXYzine (VISTARIL) capsule 50 mg Problems Active Problems Problem Classification Problem Date Documented Da te Episodic/Chronic Alcohol-related disorders (5 sources) Alcohol abuse; Translations: [Alcohol abuse, uncomplicated] Onset: 11-06-2020 11-06-2020 Chronic Anxiety disorders (20 sources) Anxiety state; Translations: [Generalized anxiety disorder] Onset: 11-06-2020 11-06-2020 Chronic Miscellaneous mental health disorders (5 sources) Chronic insomnia; Translations: [Psychophysiologic insomnia] Onset: 11-06-2020 11-06-2020 Chronic Mood disorders (7 sources) Severe recurrent major depression without psychotic features; Translations: [Major depressive disorder, recurrent severe without psychotic features] Onset: 11-12-2020 11-12-2020 Chronic Other aftercare (1 source) Patient encounter status; Translations: [Other halfway (current) drug therapy] Episodic Residual codes; unclassified (2 sources) Current drinker; Translations: [Other specified health status] Episodic Substance-related disorders (7 sources) Tobacco user; Translations: [Nicotine dependence, unspecified, uncomplicated] Onset: 11-06-2020 11-06-2020 Chronic Unclassified (1 source) APPOINTMENT CANCELLED Unclassified (1 source) NO SHOW 04-18-2023 Past or Other Problems Problem Classification Problem Date Documented Da te Episodic/Chronic Cardiac dysrhythmias (5 sources) Tachycardia; Translations: [Tachycardia, unspecified] Onset: 07-15-2021 07-15-2021 Episodic Other aftercare (1 source) Other intermediate manager (current) drug therapy; Translations: [Encounter for long-term (current) use of medications] Onset: 07-20-2022 Episodic Residual codes; unclassified (1 source) Other specified health status; Translations: [Alcohol use] Onset: 07-20-2022 Episodic Suicide and intentional self-inflicted injury (5 sources) Suicide attempt ; Translations: [Suicide attempt, initial encounter] Onset: 11-06-2020 11-06-2020 Episodic Results Test Name Value Interpretation Reference Range Facil it Vital Signs Date Time Vital Sign Value Performing Clinician Nehemias corbin 07-20-2022 14:58-0500 Body weight 107.05 kg Cecil Salinas APRN.LIANA Work Phone: [facility] 07-20-2022 14:58-0500 Diastolic blood pressure 88 mm[Hg] Cecil Rajguru [employer] AG[employer]CIES SUPERVISOR.WRAPPING CLERK Work Phone: [facility] 07-20-2022 14:58-0500 Heart rate 88 /min Cecil Salinas [employer]CIES SUPERVISOR.WRAPPING CLERK Work Phone: [facility] 07-20-2022 14:58-0500 Systolic blood pressure 140 mm[Hg] Cecil Rajguru [employer] AG[employer]CIES SUPERVISOR.LIANA Work Phone: [facility] 08-04-2019 19:57-0500 BMI (Body Mass Index) 24.97 kg/m2 Alfredo Macias [facility] Work Phone: 08-04-2019 19:57-0500 Body Temperature 98.4 [degF] Alfredo Macias [facility] Work Phone: 08-04-2019 19:57-0500 Body weight 88.2 kg Alfredo Almeida [facility] Phone: 08-04-2019 19:57-0500 BP Diastolic 101 mm[Hg] Alfredo Macias [facility] Phone: 08-04-2019 19:57-0500 BP Systolic 131 mm[Hg] Alfredo Almeida [employer] Phone: 08-04-2019 19:57-0500 Height 188 cm Alfreod Macias [facility] Phone: 08-04-2019 19:57-0500 Pulse (Heart Rate) 83 /min Alfredo Macias [facility] Phone: 08-04-2019 19:57-0500 Pulse Oximetry 98 % Alfredo Almeida [employer] Phone: 08-04-2019 19:57-0500 Respiratory Rate 16 /min Alfredo Macias [facility] Phone: Encounters Encounter Date Encounter Type Care Provider Facility Start: 04-18-2023 End: 04-18-2023 Patient encounter procedure Cecil Salinas APRN.WRAPPING CLERK Work Phone: Psychiatry Procedures Date Procedure Procedure Detail Performing Clinician Start: 07-28-2021 Lipid 1996 panel - S desire or Plasma Cecil Salinas APRN.WRAPPING CLERK Work Phone: Plan of Treatment Date Care Activity Detail Author Start: 2032 Shingles Vaccine (1 of 2) Shingles Vaccine (1 of 2) [facility] Phone: Start: 07-28-2026 Lipid 1996 panel - Serum or Plasma Lipid Screening [facility] Start: 07-28-2026 LIPID SCREEN LIPID SCREEN [facility] Start: 02-17-2023 Influenza vaccination Influenza Vacc ine (#1) [facility] Start: 07-20-2022 End: 09-19-2022 25-hydroxyvitamin D3 [Mass/volume] in Serum or Plasma VITAMIN D 25 HYDROXY Lab Routine Encounter for long-term (current) use of medications Expected: 07/20/2022, Expires: 09/19/2022 [facility] Work Phone: Payers Date Payer Category Payer Medicaid [id number] 2019 Medicaid [id number] [address] [facility] xxxxxxxxxxx 2014-Present [phone] CLAIMS DEPARTMENT [address] [place] [address] xxxxxxxxxxx [id number] Social History Date Type Detail Facility Start: 08-04-2019 End: 12-10-2020 Tobacco smoking status NHIS Current every day smoker [facility] Work Phone: History of tobacco use Cigarette Smoker [facility] Phone: Start: 08-04-2019 End: 04-18-2023 Cigarettes smoked current (pack per day) - Reported [facility] Work Phone: Start: 08-04-2019 Alcohol intake Ex-drinker (finding) [facility] Phone: Start: 08-04-2019 Alcohol Comment daily, Pint 80 proof. Went to [facility] 2019. Stopped drinking. He did drink last night [facility] Phone: Start: 1980 Sex Assigned At Not on file [facility] Phone: Start: 12-10-2020 Tobacco use and exposure Smokeless tobacco non-user [facility] Work Phone: Start: 11-03-2021 Alcohol intake Current drinke r of alcohol (finding) [facility] Start: 12-10-2020 Tobacco Comment 1.5 packs per day [facility] Start: 12-10-2020 Alcohol Comment former alcohol ic beer every three to four days [facility] Start: 11-03-2021 End: 04-18-2023 Tobacco use panel [facility] Work Phone: Adult Depression Screening Assessment 3 [facility] Work Phone: Clinical Notes 06-08-2022 to 04-18-2023 Cecil Salinas APRN.CNP - 04/18/2023 11:23 AM [facility] Encounter - Shannon Duran RN - 04/07/2023 12:39 PM EDTTelephone Encounter - Coretta Zurita LPN - 04/07/2023 12:03 PM EDT Note Date & Type Note Facility 04-18-2023 Note HNO ID: [id number] Author: Cecil Salinas APRN.CNP Service: ? Author Type: Nurse Practitioner Type: Progress Notes Filed: 04/18/2023 11:24 AM Note Text: Patient did not come in for his scheduled appointment with the provider. [facility] 04-18-2023 History of Presen t illness Narrative Patient did not come in for his scheduled appointment with the provider. documented in this encounter [facility] 04-07-2023 Miscellaneous Notes Formattin g of this note might be different from the original. Patient calls back and states that he needs to have quetiapine to be able to sleep. Patient states that he stopped taking venlafaxine and has not noticed any difference. Patient states that he has been taking buspirone. Patient states that he has not had any problems with depression. Patient states that he only gets 0-2 hours asleep at night. Patient states that he has fallen into old habits of drinking alcohol. Patient is scheduled with Cecil on 04/18/2023. Patient states that he started a new job and is afraid to ask off for that. Shannon Duran RN Attempted to contact to schedule FU before refills will be sent Patient has been identified by name and date of : Yes Last office visit in this department: 07/20/2022 RX INSTRUCTIONS: Patient aware RX will be sent to pharmacy. No need to notify patient. Patient phones requesting refills as follows: Requested Prescriptions Pending Prescriptions Disp Refills QUEtiapine (SEROQUEL) 100 mg tablet 90 tablet 1 Sig: Take 1 tablet by mouth daily at bedtime. varenicline (CHANTIX STARTING MONTH BOX) 0.5 mg (11)- 1 mg (42) tablet 60 tablet 0 Sig: Take 0.5 mg by mouth once daily on Days 1 through 3, THEN 0.5 mg twice daily on Days 4 through 7, THEN 1 mg twice daily on Day 8 and thereafter venlafaxine (EFFEXOR) 25 mg tablet 90 tablet 1 Sig: Take 1 tablet by mouth once daily. Take with a meal and around the same time every day. Please review and advise. Linda Trejo Pss documented in this encounter [facility] 07-20-2022 Note HNO ID: [id number] Author: Cecil Salinas APRN.WRAPPING CLERK Service: ? Author Type: Nurse Practitioner Type: Progress Notes Filed: 07/20/2022 3:30 PM Note Text: PSYC FOLLOW UP - PSYCHIATRIC PROGRESS NOTE DIAGNOSIS: Generalized Anxiety Disorder Chronic PTSD MDD, recurrent, in partial remission Nicotine use disorder Alcohol use GAF: -80-71 If symptoms are present, they are transient and expectable reactions to psychosocial stressors TREATMENT PLAN: Continue psychiatric medications at the same dose. Complete fasting lab work for monitoring purposes. Consider adding Metformin after reviewing lab work if there are concerns about metabolic side effects related to halfway Seroquel use. Start Chantix to aid with smoking cessation. Encouraged to schedule an appointment with new PCP as his old PCP is not working in this area. Follow up in 2 to 3 months The effects and side effects of all the medications were reviewed in detail with the patient. He denies any involuntary movement related side effects. Patient is in agreement with the treatment plan and aware to reach out with any questions, concerns, or worsening of symptoms prior to the next appointment. CC: Follow up regarding mood and anxiety HPI: Tammy Plata is a 42 year old Male with a history of MARLENY, PTSD, MDD, nicotine use disorder, and alcohol use presenting today for follow-up. Date of last visit: 11/03/2021 Plan from last visit: Continue BuSpar, Seroquel, and Effexor at the same dose. Counseled patient to decrease use of alcohol and nicotine. Encouraged patient to complete monitoring lab work prior to the next appointment. Follow-up in 6 months. Consider transfer of care to PCP at the next appointment, if patient continues to do well on the current combination of his medications. Today Tammy shares that he missed his last appointment. He has been consistent in taking his medications. It has been helpful for his anxiety and he is able to drive every day. He still struggles to drive on the [employer]. Continues to work at [employer]. Feels that the job is tedious but he continues to work to provide for himself and daughter. Daughter lives in [place] and enrolled in school. He looks forward to seeing her in summer. His alcohol use has been steady. He drinks 1 to 2 beers a night when he gets home. Continues to smoke 1 to 1 and half packs a day. He is interesting in stopping. Open to trying Chantix. Has tried patch and gum and it was not helpful. He does report that Seroquel has increased his appetite. We discussed ordering lab work for monitoring purposes. Socially things are going well. He has a nice room mate and his brother moved in the same building as him. Interval Progress: Improved Risks and benefits of the medication, including any black box warnings, were discussed with the patient. Social History: See HPI PATIENT DATA: Generalized Anxiety Disorder Scale (MARLENY-7) MARLENY - 7 SCORES 12/10/2020 02/17/2021 11/03/2021 MARLENY-7 Score 10 16 5 (0-4) minimal anxiety, (5-9) mild anxiety, (10-14) moderate anxiety, (15-21) severe anxiety Patient Health Questionnaire (PHQ-9) PHQ-9 02/17/2021 11/03/2021 07/20/2022 Score 12 9 13 (0-4) minimal depression, (5-9) mild depression, (10-14) moderate depression, (15-19) moderately severe depression, (20-27) severe depression ROS: See HPI General: Negative for fever, malaise, unintentional weight loss HEENT: Negative for recent changes in vision or hearing, no nasal drainage Respiratory: Negative for cough, wheezing or SOB Cardiovascular: Negative for chest pain GI: Negative for nausea, vomiting, change in bowel habits MUSCULOSKELETAL: Negative for acute back or joint pain SKIN: Negative for rash NEURO: Negative for headaches, seizures, focal neurological deficits All other systems negative. VITAL SIGNS: BP 140/88 (07/20/22 1458) Temp Pulse 88 (07/20/22 1458) Resp SpO2 MENTAL STATUS EXAMINATION: Appearance: Appropriately groomed, appears stated age Behavior: Appropriately engaged Psychomotor: No psychomotor agitation Cognition Level of Consciousness: Awake and alert. No fluctuation in wakefulness. Orientation: Grossly oriented Memory: Intact Attention/Concentration: Good Fund of Knowledge: Able to demonstrate an awareness of current events. Mood: Euthymic Affect: Congruent to mood Speech/Language: Appropriate tone, prosody, liz, phonetics, and syntax Thought Form: Goal-directed. No loosening of associations. Thought Content: No delusions noted or endorsed. Perceptual Disturbances: Did not appear to respond to auditory stimuli. Safety: Suicidal Ideations: No suicidal ideation, intent or plan. Homicidal Ideations: No homicidal ideation, intent or plan. Insight: Appropriate Judgment: Appropriate I spent a total of 26 minutes on the date of the service which included preparing to see the patient, [id number] patient care, com (more content not included)... [facility] 07-20-2022 History of Presen t illness Narrative Images from the original note were not included. PSYC FOLLOW UP - PSYCHIATRIC PROGRESS NOTE DIAGNOSIS: Generalized Anxiety Disorder Chronic PTSD MDD, recurrent, in partial remission Nicotine use disorder Alcohol use GAF: -80-71 If symptoms are present, they are transient and expectable reactions to psychosocial stressors TREATMENT PLAN: Continue psychiatric medications at the same dose. Complete fasting lab work for monitoring purposes. Consider adding Metformin after reviewing lab work if there are concerns about metabolic side effects related to intermediate manager Seroquel use. Start Chantix to aid with smoking cessation. Encouraged to schedule an appointment with new PCP as his old PCP is not working in this area. Follow up in 2 to 3 months The effects and side effects of all the medications were reviewed in detail with the patient. He denies any involuntary movement related side effects. Patient is in agreement with the treatment plan and aware to reach out with any questions, concerns, or worsening of symptoms prior to the next appointment. CC: Follow up regarding mood and anxiety HPI: Tammy Plata is a 42 year old Male with a history of MARLENY, PTSD, MDD, nicotine use disorder, and alcohol use presenting today for follow-up. Date of last visit: 11/03/2021 Plan from last visit: Continue BuSpar, Seroquel, and Effexor at the same dose. Counseled patient to decrease use of alcohol and nicotine. Encouraged patient to complete monitoring lab work prior to the next appointment. Follow-up in 6 months. Consider transfer of care to PCP at the next appointment, if patient continues to do well on the current combination of his medications. Today Tammy shares that he missed his last appointment. He has been consistent in taking his medications. It has been helpful for his anxiety and he is able to drive every day. He still struggles to drive on the [employer]. Continues to work at [employer]. Feels that the job is tedious but he continues to work to provide for himself and daughter. Daughter lives in [place] and enrolled in school. He looks forward to seeing her in summer. His alcohol use has been steady. He drinks 1 to 2 beers a night when he gets home. Continues to smoke 1 to 1 and half packs a day. He is interesting in stopping. Open to trying Chantix. Has tried patch and gum and it was not helpful. He does report that Seroquel has increased his appetite. We discussed ordering lab work for monitoring purposes. Socially things are going well. He has a nice room mate and his brother moved in the same building as him. Interval Progress: Improved Risks and benefits of the medication, including any black box warnings, were discussed with the patient. Social History: See HPI PATIENT DATA: Generalized Anxiety Disorder Scale (MARLENY-7) MARLENY - 7 SCORES 12/10/2020 02/17/2021 11/03/2021 MARLENY-7 Score 10 16 5 (0-4) minimal anxiety, (5-9) mild anxiety, (10-14) moderate anxiety, (15-21) severe anxiety Patient Health Questionnaire (PHQ-9) PHQ-9 02/17/2021 11/03/2021 07/20/2022 Score 12 9 13 (0-4) minimal depression, (5-9) mild depression, (10-14) moderate depression, (15-19) moderately severe depression, (20-27) severe depression ROS: See HPI General: Negative for fever, malaise, unintentional weight loss HEENT: Negative for recent changes in vision or hearing, no nasal drainage Respiratory: Negative for cough, wheezing or SOB Cardiovascular: Negative for chest pain GI: Negative for nausea, vomiting, change in bowel habits MUSCULOSKELETAL: Negative for acute back or joint pain SKIN: Negative for rash NEURO: Negative for headaches, seizures, focal neurological deficits All other systems negative. VITAL SIGNS: BP 140/88 (07/20/22 1458) Temp Pulse 88 (07/20/22 1458) Resp SpO2 MENTAL STATUS EXAMINATION: Appearance: Appropriately groomed, appears stated age Behavior: Appropriately engaged Psychomotor: No psychomotor agitation Cognition Level of Consciousness: Awake and alert. No fluctuation in wakefulness. Orientation: Grossly oriented Memory: Intact Attention/Concentration: Good Fund of Knowledge: Able to demonstrate an awareness of current events. Mood: Euthymic Affect: Congruent to mood Speech/Language: Appropriate tone, prosody, liz, phonetics, and syntax Thought Form: Goal-directed. No loosening of associations. Thought Content: No delusions noted or endorsed. Perceptual Disturbances: Did not appear to respond to auditory stimuli. Safety: Suicidal Ideations: No suicidal ideation, intent or plan. Homicidal Ideations: No homicidal ideation, intent or plan. Insight: Appropriate Judgment: Appropriate I spent a total of 26 minutes on the date of the service which included preparing to see the patient, [id number] patient care, completing clinical documentation, and counseling and educating the patient/family/caregiver, ordering medications/labs. Cecil Salinas APRN.[facility] July 20, 2022 3:01 PM This note was partially generated using [employer] voice recognition system. Note was reviewed for accuracy. There may be minor misspellings or grammar miscues with [employer] voice recognition. documented in this encounter [facility] 06-14-2022 Miscellaneous Notes Formattin g of this note might be different from the original. Please contact patient to reschedule OV, voice mail not set up and referral needs to pe placed. Patient called stating he could not make the 4:00 today and requested to reschedule. The only appt I could find avail was tomorrow morning at 8. Patient declined. Please advise patient of next appt with Cecil. Unable to find appts after tomorrow. documented in this encounter [facility] 06-08-2022 Note HNO ID: [id number] Author: Cecil Salinas APRN.CNP Service: ? Author Type: Nurse Practitioner Type: Progress Notes Filed: 06/08/2022 5:15 PM Note Text: Patient requested to cancel and reschedule his appointment 20 minutes before his appointment. [facility] 06-08-2022 History of Presen t illness Narrative Patient requested to cancel and reschedule his appointment 20 minutes before his appointment. documented in this encounter [facility] Diagnosis Encounter for long-term (current) use of medications- Primary Encounter for long-term (current) use of other medications MARLENY (generalized anxiety disorder) Generalized anxiety disorder Chronic post-traumatic stress disorder (PTSD) Recurrent major depression in partial remission (HCC) Major depressive disorder, recurrent episode, in partial or unspecified remission Nicotine use disorder Tobacco use disorder Alcohol use [facility] Diagnosis NO SHOW- Primary documented in this encounter [facility] Reason for Referral Status Reason Specialty Diagnoses / Procedures Referred By Contact Referred To Contact Open Continuity of Care Diagnoses Anxiety state Alcohol use Alfredo Almeida MD [address] [place] [address] [facility] Pre-Services Scheduling Instructions You will be contacted by [facility]'s central scheduling department within 3 business days to schedule your appointment with a [facility] primary care provider. Discharge Instructions * Attachments The following attachments cannot be sent through Care Everywhere. * Anxiety Disorders: General Info (Niuean) documented in this encounter Assessments Diagnosis Anxiety state- Primary Anxiety state, unspecified Alcohol use Advance Directives No Advanced Directives Records FoundDocuments on File Type Date Recorded Patient Market Research Senior Project Manager Expl anation Advance Directives and Living Will Power of Hunter Summary Purpose Family History No Family History Records Found Additional Source Comments Reason for Visit (unrecogniz ed section and content) Reason Comments Appointment Cancelled Specialty Diagnoses / Procedures Referred By Contanalia Referred To Contact ADULT PSYCHIATRY Diagnoses follow up Procedures est pt Arun Julio, LIQU[employer] AGENCIES SUPERVISOR.ZEE GAINES [address] [place] [address] [facility] [address] [place] [address] Referral ID Status Reason Start Date Expiration Date V isits Requested Visits Authorized [id number] Pending Review 04/19/2022 06/18/2022 1 1 Reason Comments Appointment Reason Comments Follow Up Specialty Diagnoses / Procedures Referred By Fransisca Referred To Contact Psychiatry / ADULT PSYCHIATRY Diagnoses Follow up Procedures EST [facility] ADULT Arun Julio, LIQU[employer]OR[employer] AGENCIES SUPERVISOR.LIANA, ZEE [address] [place] [address] Cecil Salinas, [employer]CIES SUPERVISOR.WRAPPING CLERK [address] [place] [address] Referral ID Status Reason Start Date Expiration Date V isits Requested Visits Authorized [id number] Pending Review 07/20/2022 10/18/2022 1 1 Reason Onset Date Comments Refill Request 04/07/2023 Reason Comments No Show Source Comments (unrecognize d section and content) In the event this informatio n is protected by the Federal Confidentiality of Alcohol and Drug Abuse Patient Records regulations: The Federal rules restrict any use of the information to criminally investigate or prosecute any alcohol or drug abuse patient.[facility] the event this information is protected by the Federal Confidentiality of Alcohol and Drug Abuse Patient Records regulations: The Federal rules restrict any use of the information to criminally investigate or prosecute any alcohol or drug abuse patient.[facility] the event this information is protected by the Federal Confidentiality of Alcohol and Drug Abuse Patient Records regulations: The Federal rules restrict any use of the information to criminally investigate or prosecute any alcohol or drug abuse patient.[facility] Center[facility] the event this information is protected by the Federal Confidentiality of Alcohol and Drug Abuse Patient Records regulations: The Federal rules restrict any use of the information to criminally investigate or prosecute any alcohol or drug abuse patient.[facility] Center[facility] the event this information is protected by the Federal Confidentiality of Alcohol and Drug Abuse Patient Records regulations: The Federal rules restrict any use of the information to criminally investigate or prosecute any alcohol or drug abuse patient.[facility] Care Teams (unrecognized sec tion and content) Building Certifier Relationship Specialty Start Date End Date Arun Julio APRN.CNP, DNP [address], [place] [id number] PCP - General Family Medicine 06/30/21 Building Certifier Relationship Specialty Start Date End Date Arun Julio APRN.CNP, DNP [address] [place] [address] PCP - General Family Medicine 06/30/21 Building Certifier Relationship Specialty Start Date End Date Arun Julio APRN.CNP, DNP [address], [place] [id number] PCP - General Family Medicine 06/30/21 Building Certifier Relationship Specialty Start Date End Date Arun Julio APRN.CNP, DNP [address] [place] [address] PCP - General Family Medicine 06/30/21 (unrecognized sect ion and content) No Status Records Found INFORMATION SOURCE (unrecogn ized section and content) FOR RECORDS PERTAINING TO PATIENTS WHO ARE OR HAVE BEEN ENROLLED IN A CHEMICAL DEPENDENCY/SUBSTANCEABUSE PROGRAM, SOME INFORMATION MAY BE OMITTED. This clinical summary was aggregated from multiple sources. Caution should be exercised in using it in the provision of clinical care. This summary normalizes information from multiple sources, and as a consequence, information in this document may materially change the coding, format and clinical context of patient data. In addition, data may be omitted in some cases. CLINICAL DECISIONS SHOULD BE BASED ON THE PRIMARY CLINICAL RECORDS. [facility]. provides no warranty or guarantee of the accuracy or completeness of information in this document.
[2023-07-15 00:59] LABS: Amphetamine Urine VISTA NEGATIVE (<1000 ng/mL); Barbiturate Urine VISTA NEGATIVE (< 200 ng/mL); Benzodiazepine Urine VISTA NEGATIVE (< 200 ng/mL); Cocaine Urine VISTA NEGATIVE (< 300 ng/mL); Ecstacy Urine VISTA NEGATIVE (< 500 ng/mL); Methadone Urine VISTA NEGATIVE (< 300 ng/mL); PCP Urine VISTA NEGATIVE (< 25 ng/mL); THC Urine VISTA NEGATIVE (< 50 ng/mL); Vista UDS pH Range 6
[2023-07-15 00:59] LABS: Partial Thromboplast Time 41.1 Seconds (24.1-36.2)
[2023-07-15 01:08] LABS: Hematocrit 34.7 % (40-54); Hemoglobin 12.1 g/dL (13.0-16.5); Mean Corp Hgb Conc 34.9 g/dL (32-36); Mean Corpuscular Hgb 41.9 pg (27.0-32.0); Mean Corpuscular Volume 120.1 fL (80-94); Mean Platelet Vol. 10.8 fl (6.2-12.0); POSITIVE COUNT YES; POSITIVE DIFFERENTIAL YES; POSITIVE MORPHOLOGY YES; Platelet Count 189 K/mm3 (150-450); RBC Distribution Width SD 85.5 fl (35.1-43.9); Red Blood Count 2.89 M/mm3 (4.6-6.2); White Blood Count 20.9 K/mm3 (4.4-11.0)
[2023-07-15] MEDS: 0.9% Normal Saline (1000mL) 1,000 ML 999 ML IV (01:12)
[2023-07-15 01:13] LABS: Differential Indicated MANUAL DIFF
[2023-07-15 01:20] LABS: ALB/GLOB Ratio 0.6 RATIO (0.9-2.4); AST(SGOT) 86 U/L (15-37); Alanine Aminotransfer ALT/SGPT 35 U/L (16-61); Albumin, Serum 2.2 g/dL (3.2-5.0); Alkaline Phosphatase 199 U/L (45-117); Anion Gap 30 (5-15); BUN 12 mg/dL (7-18); BUN/Creat Ratio 8.3 RATIO (10-20); Calcium,Total 7.3 mg/dL (8.5-10.1); Chloride 86 mmol/L (98-107); Creatinine, Serum 1.44 mg/dL (0.70-1.30); EST Glomerular Filtration Rate 57 mL/min (>60); Est Glom Filt Rate - Afr Amer 70 mL/min (>60); Estimated Creatinine Clearance 78.49 ml/min; Globulin 3.7 g/dL (2.2-4.2); Glucose 225 mg/dL (74-106); Lipase 28 U/L (13-75); Potassium 1.6 mmol/L (3.5-5.1); Protein, Total 5.9 g/dL (6.4-8.2); Sodium Level 136 mmol/L (136-145); Troponin-I HS (w/2H Reflex) 8 pg/mL (3.0-78.0)
[2023-07-15] MEDS: Sodium Bicarbonate 100 MEQ in Dextrose 5%-Water (1000mL Bag) 1,000 ML 200 MEQ IV (01:20)
[2023-07-15 01:35] LABS: Magnesium 4.9 mg/dL (1.6-2.6)
--- NOTE | 2023-07-15 01:56 | ED.RN ---
Addendum entered by Yoselin Rea 07/15/23 04:15: CALLED AGAIN AT 354 FOR UPDATED ETA, GIVEN 12 MIN. ALSO LET CREW KNOW PT NO LONGER VENTED. Addendum entered by Yoselin Rea 07/15/23 03:40: CALLED AT 0307 FOR UPDATED ETA THEY PASSED ORIGINAL ETA. GIVEN ANOTHER 30 MINUTES. CREW WAS IN [place] DROPPING OFF A PT. Original Note: ATTEMPTED TO ARRANGE FLIGHT PER DR. POWELL FLIGHT AND LIFE FLIGHT DECLINED FOR WEATHER. GROUND WAS GOING TO BE 2+ HRS. CALLED PHYSICIANS TO SET UP PRIORITY 1 RIDE. WHILE ON PHONE WITH PHYSICIANS THEY TRIED TO OUTSOURCE AND GOT DECLINED DUE TO NO INSURANCE AND HIGH VOLUME OF CONTRACTS OTHER COMPANIES HAD. PHYSICIANS GAVE A 60-90 MIN ETA GIVING ETA TO BE ABOUT 0230/3 AM
[2023-07-15] MEDS: Potassium Chloride 10mEq/100mL 10 MEQ/100 ML IV.SOLN. 100 MEQ IV BOLUS ×2 (02:03→03:39)
--- NOTE | 2023-07-15 02:09 | ED.RN ---
Spoke to brother Rik, informed of events during stay and transfer. Verbalized understanding.
[2023-07-15 02:16] LABS: Allen Test Positive; Base Excess 4 mmol/L (-2 to +2); Bicarbonate 28.3 mmol/L (22-26); Blood Gas Specimen Type ART; Mode AC; O2 Delivery Device Adult Vent; PEEP 5; PO2 73 mmHG (75-100); RR 16; SITE R Radial; SO2 95 % (95-99); Total Carbon Dioxide 30 mmol/L; pH 7.42 (7.35-7.45)
[2023-07-15 02:34] LABS: Reflex Troponin-HS? (from REC) Y
[2023-07-15] MEDS: Potassium Chloride Oral Soln 20 MEQ/15 ML UDC 40 MEQ PO (02:35)
[2023-07-15] MEDS: fentaNYL 100 MCG/2 ML Ampul 50 MCG IV (02:38)
[2023-07-15] MEDS: fentaNYL drip 100 ML 2.5 MCG CONT INF (02:38)
[2023-07-15 02:42] LABS: Eosinophil 1 % (0-5); Lymphocyte 27 % (19-41); Monocyte 1 % (0-10); Myelocyte 2 % (0-0); Neutrophil-Band 2 % (0-5); Neutrophil-Segmented 67 % (47-70); Reactive Lymphocyte 3+; Total Cells Counted 100 (MANUAL DIFF)
[2023-07-15 02:43] LABS: Anisocytosis 2+; Differential Comment SCANNED
[2023-07-15 02:44] LABS: Absolute Lymphocyte Count 5.65 X10^3/uL (0.83-4.51)
[2023-07-15 02:45] LABS: Absolute Neutrophil Count 14.4 X10^3/uL (2.0-7.7)
--- NOTE | 2023-07-15 03:26 | EDS_ITS ---
HPI History of Present Illness Chief Complaint: General Illness Detail of Chief Complaint: This is a second chart because the first 1 would not open. PFSH PFSH Medical History Acute electrocardiogram changes Acute hypokalemia Acute hyponatremia Alcoholism Anxiety Depression Muscle weakness Smoker Home Medications buspirone 10 mg tablet 10 mg PO TID 08/21/22 [History Last Taken 04/03/23] quetiapine 100 mg tablet 100 mg PO QHS 08/21/22 [History Last Taken Unknown] buspirone 10 mg tablet 10 mg PO BID #20 tabs 04/08/23 [Rx Last Taken Unknown] quetiapine 100 mg tablet (Seroquel) 100 mg PO QHS #20 tabs 04/08/23 [Rx Last Taken Unknown] Allergy/AdvReac Type Severity Reaction Status Date / Time No Known Allergies Allergy Verified 04/17/23 08:04 Social History Smoking Status: Current every day smoker tobacco type: cigarettes EXAM Physical Exam Const Vital Signs: 07/14/23 23:18 07/14/23 23:22 07/14/23 23:22 Temperature 98 F Temperature Source Oral Pulse Rate 106 H Pulse Rate [11] Pulse Rate [4] Pulse Rate [9] Respiratory Rate 18 Respiratory Pattern Normal Blood Pressure 92/61 Blood Pressure [4] Blood Pressure Mean 71 Pulse Ox 99 Oxygen Delivery Method Room Air Fraction of Inspired Oxygen (FIO2) 07/14/23 23:54 07/15/23 00:30 07/15/23 00:00 Temperature Temperature Source Pulse Rate 110 H 60 Pulse Rate [11] 134 H Pulse Rate [4] 128 H Pulse Rate [9] 60 Respiratory Rate 16 26 H Respiratory Pattern Normal Blood Pressure 125/116 H Blood Pressure [4] 124/105 H Blood Pressure Mean 119 Pulse Ox 99 Oxygen Delivery Method Room Air Ambu-Bag Fraction of Inspired Oxygen (FIO2) 60 07/15/23 00:30 07/15/23 01:00 07/15/23 01:30 Temperature Temperature Source Pulse Rate 110 H 111 H 113 H Pulse Rate [11] Pulse Rate [4] Pulse Rate [9] Respiratory Rate 12 16 16 Respiratory Pattern Blood Pressure 132/105 H 164/123 H 164/125 H Blood Pressure [4] Blood Pressure Mean 114 136 138 Pulse Ox 100 98 97 Oxygen Delivery Method Ambu-Bag Mechanical Ventilator Mechanical Ventilator Fraction of Inspired Oxygen (FIO2) 07/15/23 02:00 07/15/23 02:30 07/15/23 00:18 Temperature Temperature Source Pulse Rate 116 H 115 H Pulse Rate [11] Pulse Rate [4] Pulse Rate [9] Respiratory Rate 20 H 25 H Respiratory Pattern Blood Pressure 150/114 H 114/89 H Blood Pressure [4] Blood Pressure Mean 126 97 Pulse Ox 95 Oxygen Delivery Method Mechanical Ventilator Mechanical Ventilator Fraction of Inspired Oxygen (FIO2) 60 07/15/23 02:45 Temperature Temperature Source Pulse Rate 102 H Pulse Rate [11] Pulse Rate [4] Pulse Rate [9] Respiratory Rate 25 H Respiratory Pattern Blood Pressure 121/92 H Blood Pressure [4] Blood Pressure Mean 101 Pulse Ox 92 Oxygen Delivery Method Mechanical Ventilator Fraction of Inspired Oxygen (FIO2) 40 MDM MDM Lab Data Labs: Laboratory Results - last 24 hr 07/14/23 07/14/23 07/15/23 23:55 23:55 00:20 WBC Cancelled Corrected WBC Cancelled RBC Cancelled Hgb Cancelled Hct Cancelled MCV Cancelled MCH Cancelled MCHC Cancelled RDW Std Deviation Cancelled RDW Coeff of Manju Cancelled Plt Count Cancelled MPV Cancelled Immature Gran % (Auto) Cancelled Neut % (Auto) Cancelled Lymph % (Auto) Cancelled Citrus % (Auto) Cancelled Eos % (Auto) Cancelled Baso % (Auto) Cancelled Absolute Neuts (auto) Cancelled Absolute Lymphs (auto) Cancelled Total Counted Cancelled Neutrophils % (Manual) Cancelled Band Neutrophils % Cancelled Lymphocytes % (Manual) Cancelled Monocytes % (Manual) Cancelled Eosinophils % (Manual) Cancelled Basophils % (Manual) Cancelled Metamyelocytes % Cancelled Myelocytes % Cancelled Promyelocytes % Cancelled Blast Cells % Cancelled Plasma Cell % (Manual) Cancelled Other Cells % Cancelled Nucleated RBC % Cancelled Nucleated RBCs/100 WBC Cancelled Differential Comment Cancelled Diff Path Review Cancelled Hypersegmented Neuts Cancelled Atypical Lymphocytes Cancelled Reactive Lymphocytes Cancelled Smudge Cells Cancelled Toxic Granulation Cancelled Toxic Vacuolation Cancelled Dohle Bodies Cancelled Cornell Rods Cancelled Platelet Estimate Cancelled Plt Morphology Comment Cancelled RBC Morphology Cancelled Cancelled Polychromasia Cancelled Hypochromasia Cancelled Poikilocytosis Cancelled Basophilic Stippling Cancelled Anisocytosis Cancelled Microcytosis Cancelled Macrocytosis Cancelled Spherocytes Cancelled Sickle Cells Cancelled Target Cells Cancelled Tear Drop Cells Cancelled Ovalocytes Cancelled Stomatocytes Cancelled [place] Bodies Cancelled Franc Cells Cancelled Bite Cells Cancelled Crenated Cell Cancelled Acanthocytes (Spur) Cancelled Rouleaux Cancelled Schistocytes Cancelled PT Cancelled INR Cancelled APTT Sodium Cancelled Potassium Cancelled Chloride Cancelled Carbon Dioxide Cancelled Anion Gap Cancelled BUN Cancelled Creatinine Cancelled Estim Creat Clear Calc Cancelled Est GFR (MDRD) Af Amer Cancelled Est GFR (MDRD) Non-Af Cancelled BUN/Creatinine Ratio Cancelled Glucose Cancelled Lactic Acid Calcium Cancelled Magnesium Total Bilirubin Cancelled AST Cancelled ALT Cancelled Alkaline Phosphatase Cancelled Troponin I High Sens Total Protein Cancelled Albumin Cancelled Globulin Cancelled Albumin/Globulin Ratio Cancelled Lipase Urine Opiates Screen NEGATIVE Urine Methadone Screen NEGATIVE Ur Barbiturates Screen NEGATIVE Ur Phencyclidine Scrn NEGATIVE Ur Amphetamines Screen NEGATIVE MDMA (Ecstasy) Screen NEGATIVE U Benzodiazepines Scrn NEGATIVE Urine Cocaine Screen NEGATIVE U Cannabinoids Screen NEGATIVE Ur Drug Screen Comment Ethyl Alcohol Cancelled 07/15/23 07/15/23 07/15/23 00:30 00:34 00:53 WBC 20.9 H Corrected WBC RBC 2.89 L Hgb 12.1 L Hct 34.7 L MCV 120.1 H MCH 41.9 H MCHC 34.9 RDW Std Deviation 85.5 H RDW Coeff of Manju 19.0 H Plt Count 189 MPV 10.8 Immature Gran % (Auto) Neut % (Auto) Not Reportable Lymph % (Auto) Citrus % (Auto) Eos % (Auto) Baso % (Auto) Absolute Neuts (auto) 14.4 H Absolute Lymphs (auto) 5.65 H Total Counted 100 Neutrophils % (Manual) 67 Band Neutrophils % 2 Lymphocytes % (Manual) 27 Monocytes % (Manual) 1 Eosinophils % (Manual) 1 Basophils % (Manual) Metamyelocytes % Myelocytes % 2 H Promyelocytes % Blast Cells % Plasma Cell % (Manual) Other Cells % Nucleated RBC % Nucleated RBCs/100 WBC Differential Comment SCANNED Diff Path Review May foll Hypersegmented Neuts Atypical Lymphocytes Reactive Lymphocytes 3+ Smudge Cells Toxic Granulation Toxic Vacuolation Dohle Bodies Cornell Rods Platelet Estimate Plt Morphology Comment RBC Morphology Polychromasia Hypochromasia Poikilocytosis Basophilic Stippling Anisocytosis 2+ Microcytosis Macrocytosis Spherocytes Sickle Cells Target Cells Tear Drop Cells Ovalocytes Stomatocytes [place] Bodies Franc Cells Bite Cells Crenated Cell Acanthocytes (Spur) Rouleaux Schistocytes PT INR APTT 41.1 H Sodium 136 Potassium 1.6 L* Chloride 86 L Carbon Dioxide 20.0 L Anion Gap 30 H BUN 12 Creatinine 1.44 H Estim Creat Clear Calc 78.49 Est GFR (MDRD) Af Amer 70 Est GFR (MDRD) Non-Af 57 L BUN/Creatinine Ratio 8.3 L Glucose 225 H Lactic Acid Calcium 7.3 L Magnesium 4.9 H Total Bilirubin 3.80 H AST 86 H ALT 35 Alkaline Phosphatase 199 H Troponin I High Sens 8 Total Protein 5.9 L Albumin 2.2 L Globulin 3.7 Albumin/Globulin Ratio 0.6 L Lipase 28 Urine Opiates Screen Urine Methadone Screen Ur Barbiturates Screen Ur Phencyclidine Scrn Ur Amphetamines Screen MDMA (Ecstasy) Screen U Benzodiazepines Scrn Urine Cocaine Screen U Cannabinoids Screen Ur Drug Screen Comment Ethyl Alcohol < 3.0 07/15/23 01:00 WBC Corrected WBC RBC Hgb Hct MCV MCH MCHC RDW Std Deviation RDW Coeff of Manju Plt Count MPV Immature Gran % (Auto) Neut % (Auto) Lymph % (Auto) Citrus % (Auto) Eos % (Auto) Baso % (Auto) Absolute Neuts (auto) Absolute Lymphs (auto) Total Counted Neutrophils % (Manual) Band Neutrophils % Lymphocytes % (Manual) Monocytes % (Manual) Eosinophils % (Manual) Basophils % (Manual) Metamyelocytes % Myelocytes % Promyelocytes % Blast Cells % Plasma Cell % (Manual) Other Cells % Nucleated RBC % Nucleated RBCs/100 WBC Differential Comment Diff Path Review Hypersegmented Neuts Atypical Lymphocytes Reactive Lymphocytes Smudge Cells Toxic Granulation Toxic Vacuolation Dohle Bodies Cornell Rods Platelet Estimate Plt Morphology Comment RBC Morphology Polychromasia Hypochromasia Poikilocytosis Basophilic Stippling Anisocytosis Microcytosis Macrocytosis Spherocytes Sickle Cells Target Cells Tear Drop Cells Ovalocytes Stomatocytes [place] Bodies [place] Cells Bite Cells Crenated Cell Acanthocytes (Spur) Rouleaux Schistocytes PT INR APTT Sodium Potassium Chloride Carbon Dioxide Anion Gap BUN Creatinine Estim Creat Clear Calc Est GFR (MDRD) Af Amer Est GFR (MDRD) Non-Af BUN/Creatinine Ratio Glucose Lactic Acid 18.0 H* Calcium Magnesium Total Bilirubin AST ALT Alkaline Phosphatase Troponin I High Sens Total Protein Albumin Globulin Albumin/Globulin Ratio Lipase Urine Opiates Screen Urine Methadone Screen Ur Barbiturates Screen Ur Phencyclidine Scrn Ur Amphetamines Screen MDMA (Ecstasy) Screen U Benzodiazepines Scrn Urine Cocaine Screen U Cannabinoids Screen Ur Drug Screen Comment Ethyl Alcohol ABG Data ABG results: ABG 07/15/23 07/15/23 00:48 02:11 Specimen Type ART ART Sample Site R Radial R Radial pH 7.11 L* 7.42 Bicarbonate Actual 21.1 L 28.3 H Total CO2 23 30 Base Excess -8 L 4 H O2 Saturation 99 95 O2 % 60.0 60.0 ABG pCO2 67.2 H* 44.0 ABG pO2 175 H 73 L Justino Test Positive Positive Respiration Rate 16 16 O2 Delivery Device Adult Vent Adult Vent Vent Mode AC AC Tidal Volume 500.0 500.0 POC PEEP 5 5 Crit Call To/Read Back Yes Blood Gas Notified Whom dr morales Blood Gas Notified Time 00:50:20 Radiography Diagnostic Testing: Clinical Impression(s) from Imaging Studies KUB X-Ray 07/15/23 00:18 IMPRESSION: Enteric tube projects subdiaphragmatic within the stomach. Electronically Signed: Alfredo Duron MD at 1:00 EST , Chest X-Ray 07/15/23 00:20 IMPRESSION: Support apparatus as above No radiographic evidence of acute cardiopulmonary disease. Electronically Signed: Alfredo Duron MD at 0:59 EST , Chest CTA 07/15/23 00:56 IMPRESSION: No pulmonary embolism or evidence of acute airspace disease. Mild peribronchial thickening as can be seen with bronchitis/bronchiolitis. Hepatic steatosis. Suggestion of hepatomegaly. Mild calcified coronary atherosclerosis. Electronically Signed: Alfredo Duron MD at 2:45 EST , ADDENDUM: 07/15/23 0309 IMPRESSION: undefined Treatment and Re-Evaluation :: Patient was placed on a fentanyl drip because he had torsades and propofol was contraindicated. Patient extubated himself. Patient saturation 9 9% on nonrebreather mask. Patient is following commands. Since patient is following towards the fentanyl drip was discontinued. Discharge Plan Triage Chief Complaint: General Illness ED Provider: Gene Morales Dx/Rx/DC Orders Clinical Impression: Cardiopulmonary arrest with successful resuscitation, Acute respiratory failure with hypoxia and hypercapnia, Torsades de pointes, Acute hypokalemia, Acidosis, lactic, Leukocytosis, Sternal fracture Prescriptions: No Action quetiapine 100 mg tablet 100 mg PO QHS Patient Comments: PT STATES RAN OUT AND HAS NOT TAKEN IN ABOUT 2 MONTHS buspirone 10 mg tablet 10 mg PO TID buspirone 10 mg tablet 10 mg PO BID Qty: 20 0RF quetiapine [Seroquel] 100 mg tablet 100 mg PO QHS Qty: 20 0RF Primary Care Provider: Care Physician,No Primary Referrals: Care Physician,No Primary [Primary Care Provider] - Disposition Disposition: Acute Care Hospital Discharge Location: [facility]
--- NOTE | 2023-07-15 03:36 | CPS ---
Patient extubated himself at this time. Placed on NRB per Dr. Saleem.
[2023-07-15 03:37] LABS: Troponin-I HS 167 pg/mL (3.0-78.0)
--- NOTE | 2023-07-15 03:39 | CPS ---
Patient self extubated at this time. Placed on NRB per Dr. Saleem. Will continue to monitor. Vent on standby at bedside.
[2023-07-15] MEDS: LORazepam 2 MG/ML Syringe 0.5 MG IV (03:51)
--- NOTE | 2023-07-15 04:18 | EDS_ITS ---
HPI History of Present Illness Chief Complaint: General Illness [facility] Medical History Acute electrocardiogram changes Acute hypokalemia Acute hyponatremia Alcoholism Anxiety Depression Muscle weakness Smoker Home Medications buspirone 10 mg tablet 10 mg PO TID 08/21/22 [History Last Taken 04/03/23] quetiapine 100 mg tablet 100 mg PO QHS 08/21/22 [History Last Taken Unknown] buspirone 10 mg tablet 10 mg PO BID #20 tabs 04/08/23 [Rx Last Taken Unknown] quetiapine 100 mg tablet (Seroquel) 100 mg PO QHS #20 tabs 04/08/23 [Rx Last Taken Unknown] Allergy/AdvReac Type Severity Reaction Status Date / Time No Known Allergies Allergy Verified 04/17/23 08:04 Social History Smoking Status: Current every day smoker tobacco type: cigarettes EXAM Physical Exam Const Vital Signs: 07/14/23 23:18 07/14/23 23:22 07/14/23 23:22 Temperature 98 F Temperature Source Oral Pulse Rate 106 H Pulse Rate [11] Pulse Rate [4] Pulse Rate [9] Respiratory Rate 18 Respiratory Pattern Normal Blood Pressure 92/61 Blood Pressure [4] Blood Pressure Mean 71 Pulse Ox 99 Oxygen Delivery Method Room Air Fraction of Inspired Oxygen (FIO2) 07/14/23 23:54 07/15/23 00:30 07/15/23 00:00 Temperature Temperature Source Pulse Rate 110 H 60 Pulse Rate [11] 134 H Pulse Rate [4] 128 H Pulse Rate [9] 60 Respiratory Rate 16 26 H Respiratory Pattern Normal Blood Pressure 125/116 H Blood Pressure [4] 124/105 H Blood Pressure Mean 119 Pulse Ox 99 Oxygen Delivery Method Room Air Ambu-Bag Fraction of Inspired Oxygen (FIO2) 60 07/15/23 00:30 07/15/23 01:00 07/15/23 01:30 Temperature Temperature Source Pulse Rate 110 H 111 H 113 H Pulse Rate [11] Pulse Rate [4] Pulse Rate [9] Respiratory Rate 12 16 16 Respiratory Pattern Blood Pressure 132/105 H 164/123 H 164/125 H Blood Pressure [4] Blood Pressure Mean 114 136 138 Pulse Ox 100 98 97 Oxygen Delivery Method Ambu-Bag Mechanical Ventilator Mechanical Ventilator Fraction of Inspired Oxygen (FIO2) 07/15/23 02:00 07/15/23 02:30 07/15/23 00:18 Temperature Temperature Source Pulse Rate 116 H 115 H Pulse Rate [11] Pulse Rate [4] Pulse Rate [9] Respiratory Rate 20 H 25 H Respiratory Pattern Blood Pressure 150/114 H 114/89 H Blood Pressure [4] Blood Pressure Mean 126 97 Pulse Ox 95 Oxygen Delivery Method Mechanical Ventilator Mechanical Ventilator Fraction of Inspired Oxygen (FIO2) 60 07/15/23 02:45 Temperature Temperature Source Pulse Rate 102 H Pulse Rate [11] Pulse Rate [4] Pulse Rate [9] Respiratory Rate 25 H Respiratory Pattern Blood Pressure 121/92 H Blood Pressure [4] Blood Pressure Mean 101 Pulse Ox 92 Oxygen Delivery Method Mechanical Ventilator Fraction of Inspired Oxygen (FIO2) 40 MDM MDM Lab Data Attestation: I reviewed the patient's lab results. Lab results narrative: Second troponin is abnormal at 167. Labs: Laboratory Results - last 24 hr 07/14/23 07/14/23 07/15/23 23:55 23:55 00:20 WBC Cancelled Corrected WBC Cancelled RBC Cancelled Hgb Cancelled Hct Cancelled MCV Cancelled MCH Cancelled MCHC Cancelled RDW Std Deviation Cancelled RDW Coeff of Manju Cancelled Plt Count Cancelled MPV Cancelled Immature Gran % (Auto) Cancelled Neut % (Auto) Cancelled Lymph % (Auto) Cancelled Fergus % (Auto) Cancelled Eos % (Auto) Cancelled Baso % (Auto) Cancelled Absolute Neuts (auto) Cancelled Absolute Lymphs (auto) Cancelled Total Counted Cancelled Neutrophils % (Manual) Cancelled Band Neutrophils % Cancelled Lymphocytes % (Manual) Cancelled Monocytes % (Manual) Cancelled Eosinophils % (Manual) Cancelled Basophils % (Manual) Cancelled Metamyelocytes % Cancelled Myelocytes % Cancelled Promyelocytes % Cancelled Blast Cells % Cancelled Plasma Cell % (Manual) Cancelled Other Cells % Cancelled Nucleated RBC % Cancelled Nucleated RBCs/100 WBC Cancelled Differential Comment Cancelled Diff Path Review Cancelled Hypersegmented Neuts Cancelled Atypical Lymphocytes Cancelled Reactive Lymphocytes Cancelled Smudge Cells Cancelled Toxic Granulation Cancelled Toxic Vacuolation Cancelled Dohle Bodies Cancelled Cornell Rods Cancelled Platelet Estimate Cancelled Plt Morphology Comment Cancelled RBC Morphology Cancelled Cancelled Polychromasia Cancelled Hypochromasia Cancelled Poikilocytosis Cancelled Basophilic Stippling Cancelled Anisocytosis Cancelled Microcytosis Cancelled Macrocytosis Cancelled Spherocytes Cancelled Sickle Cells Cancelled Target Cells Cancelled Tear Drop Cells Cancelled Ovalocytes Cancelled Stomatocytes Cancelled [place] Bodies Cancelled Franc Cells Cancelled Bite Cells Cancelled Crenated Cell Cancelled Acanthocytes (Spur) Cancelled Rouleaux Cancelled Schistocytes Cancelled PT Cancelled INR Cancelled APTT Sodium Cancelled Potassium Cancelled Chloride Cancelled Carbon Dioxide Cancelled Anion Gap Cancelled BUN Cancelled Creatinine Cancelled Estim Creat Clear Calc Cancelled Est GFR (MDRD) Af Amer Cancelled Est GFR (MDRD) Non-Af Cancelled BUN/Creatinine Ratio Cancelled Glucose Cancelled Lactic Acid Calcium Cancelled Magnesium Total Bilirubin Cancelled AST Cancelled ALT Cancelled Alkaline Phosphatase Cancelled Troponin I High Sens Total Protein Cancelled Albumin Cancelled Globulin Cancelled Albumin/Globulin Ratio Cancelled Lipase Urine Opiates Screen NEGATIVE Urine Methadone Screen NEGATIVE Ur Barbiturates Screen NEGATIVE Ur Phencyclidine Scrn NEGATIVE Ur Amphetamines Screen NEGATIVE MDMA (Ecstasy) Screen NEGATIVE U Benzodiazepines Scrn NEGATIVE Urine Cocaine Screen NEGATIVE U Cannabinoids Screen NEGATIVE Ur Drug Screen Comment Ethyl Alcohol Cancelled 07/15/23 07/15/23 07/15/23 00:30 00:34 00:53 WBC 20.9 H Corrected WBC RBC 2.89 L Hgb 12.1 L Hct 34.7 L MCV 120.1 H MCH 41.9 H MCHC 34.9 RDW Std Deviation 85.5 H RDW Coeff of Manju 19.0 H Plt Count 189 MPV 10.8 Immature Gran % (Auto) Neut % (Auto) Not Reportable Lymph % (Auto) Fergus % (Auto) Eos % (Auto) Baso % (Auto) Absolute Neuts (auto) 14.4 H Absolute Lymphs (auto) 5.65 H Total Counted 100 Neutrophils % (Manual) 67 Band Neutrophils % 2 Lymphocytes % (Manual) 27 Monocytes % (Manual) 1 Eosinophils % (Manual) 1 Basophils % (Manual) Metamyelocytes % Myelocytes % 2 H Promyelocytes % Blast Cells % Plasma Cell % (Manual) Other Cells % Nucleated RBC % Nucleated RBCs/100 WBC Differential Comment SCANNED Diff Path Review May foll Hypersegmented Neuts Atypical Lymphocytes Reactive Lymphocytes 3+ Smudge Cells Toxic Granulation Toxic Vacuolation Dohle Bodies Cornell Rods Platelet Estimate Plt Morphology Comment RBC Morphology Polychromasia Hypochromasia Poikilocytosis Basophilic Stippling Anisocytosis 2+ Microcytosis Macrocytosis Spherocytes Sickle Cells Target Cells Tear Drop Cells Ovalocytes Stomatocytes [place] Bodies Franc Cells Bite Cells Crenated Cell Acanthocytes (Spur) Rouleaux Schistocytes PT INR APTT 41.1 H Sodium 136 Potassium 1.6 L* Chloride 86 L Carbon Dioxide 20.0 L Anion Gap 30 H BUN 12 Creatinine 1.44 H Estim Creat Clear Calc 78.49 Est GFR (MDRD) Af Amer 70 Est GFR (MDRD) Non-Af 57 L BUN/Creatinine Ratio 8.3 L Glucose 225 H Lactic Acid Calcium 7.3 L Magnesium 4.9 H Total Bilirubin 3.80 H AST 86 H ALT 35 Alkaline Phosphatase 199 H Troponin I High Sens 8 Total Protein 5.9 L Albumin 2.2 L Globulin 3.7 Albumin/Globulin Ratio 0.6 L Lipase 28 Urine Opiates Screen Urine Methadone Screen Ur Barbiturates Screen Ur Phencyclidine Scrn Ur Amphetamines Screen MDMA (Ecstasy) Screen U Benzodiazepines Scrn Urine Cocaine Screen U Cannabinoids Screen Ur Drug Screen Comment Ethyl Alcohol < 3.0 07/15/23 07/15/23 01:00 02:43 WBC Corrected WBC RBC Hgb Hct MCV MCH MCHC RDW Std Deviation RDW Coeff of Manju Plt Count MPV Immature Gran % (Auto) Neut % (Auto) Lymph % (Auto) Fergus % (Auto) Eos % (Auto) Baso % (Auto) Absolute Neuts (auto) Absolute Lymphs (auto) Total Counted Neutrophils % (Manual) Band Neutrophils % Lymphocytes % (Manual) Monocytes % (Manual) Eosinophils % (Manual) Basophils % (Manual) Metamyelocytes % Myelocytes % Promyelocytes % Blast Cells % Plasma Cell % (Manual) Other Cells % Nucleated RBC % Nucleated RBCs/100 WBC Differential Comment Diff Path Review Hypersegmented Neuts Atypical Lymphocytes Reactive Lymphocytes Smudge Cells Toxic Granulation Toxic Vacuolation Dohle Bodies Cornell Rods Platelet Estimate Plt Morphology Comment RBC Morphology Polychromasia Hypochromasia Poikilocytosis Basophilic Stippling Anisocytosis Microcytosis Macrocytosis Spherocytes Sickle Cells Target Cells Tear Drop Cells Ovalocytes Stomatocytes [place] Bodies Dietrich Cells Bite Cells Crenated Cell Acanthocytes (Spur) Rouleaux Schistocytes PT INR APTT Sodium Potassium Chloride Carbon Dioxide Anion Gap BUN Creatinine Estim Creat Clear Calc Est GFR (MDRD) Af Amer Est GFR (MDRD) Non-Af BUN/Creatinine Ratio Glucose Lactic Acid 18.0 H* Calcium Magnesium Total Bilirubin AST ALT Alkaline Phosphatase Troponin I High Sens 167 H* Total Protein Albumin Globulin Albumin/Globulin Ratio Lipase Urine Opiates Screen Urine Methadone Screen Ur Barbiturates Screen Ur Phencyclidine Scrn Ur Amphetamines Screen MDMA (Ecstasy) Screen U Benzodiazepines Scrn Urine Cocaine Screen U Cannabinoids Screen Ur Drug Screen Comment Ethyl Alcohol ABG Data ABG results: ABG 07/15/23 07/15/23 00:48 02:11 Specimen Type ART ART Sample Site R Radial R Radial pH 7.11 L* 7.42 Bicarbonate Actual 21.1 L 28.3 H Total CO2 23 30 Base Excess -8 L 4 H O2 Saturation 99 95 O2 % 60.0 60.0 ABG pCO2 67.2 H* 44.0 ABG pO2 175 H 73 L Justino Test Positive Positive Respiration Rate 16 16 O2 Delivery Device Adult Vent Adult Vent Vent Mode AC AC Tidal Volume 500.0 500.0 POC PEEP 5 5 Crit Call To/Read Back Yes Blood Gas Notified Whom dr morales Blood Gas Notified Time 00:50:20 Radiography Chest X-Ray - ED: 1 View and Read by ED Physician (Reviewed interpreted by me at 0431. Endotracheal tube is in proper position. There is no evidence of infiltrate, pneumothorax or effusion. Cardiac silhouette size normal. OG is in proper position which was reinserted.) Diagnostic Testing: Clinical Impression(s) from Imaging Studies KUB X-Ray 07/15/23 00:18 IMPRESSION: Enteric tube projects subdiaphragmatic within the stomach. Electronically Signed: Alfredo Duron MD at 1:00 EST , Chest X-Ray 07/15/23 00:20 IMPRESSION: Support apparatus as above No radiographic evidence of acute cardiopulmonary disease. Electronically Signed: Alfredo Duron MD at 0:59 EST , Chest CTA 07/15/23 00:56 IMPRESSION: No pulmonary embolism or evidence of acute airspace disease. Mild peribronchial thickening as can be seen with bronchitis/bronchiolitis. Hepatic steatosis. Suggestion of hepatomegaly. Mild calcified coronary atherosclerosis. Electronically Signed: Alfredo Duron MD at 2:45 EST , ADDENDUM: 07/15/23 0301 IMPRESSION: undefined Treatment and Re-Evaluation :: I was asked to see the patient at 0415. Patient is diaphoretic cyanotic. Plan is reintubation. Procedures Intubations Intubation Method: orotracheal Intubation Verification: Positive color change Intubation Complications: no complications Critical Care Time Critical Care Time: Yes Critical care time (excluding procedures): 75-104 minutes (77), Discussing w/Consultants (Discussion with pulmonary specialist at [facility] on more than 1 occasion. Management of patient until ambulance arrived at 425.) and Performing Direct Patient Care at Bedside Discharge Plan Triage Chief Complaint: General Illness ED Provider: Gene Morales Dx/Rx/DC Orders Clinical Impression: Cardiopulmonary arrest with successful resuscitation, Acute respiratory failure with hypoxia and hypercapnia, Torsades de pointes, Acute hypokalemia, Acidosis, lactic, Leukocytosis, Sternal fracture, Non-ST elevated myocardial infarction Prescriptions: No Action quetiapine 100 mg tablet 100 mg PO QHS Patient Comments: PT STATES RAN OUT AND HAS NOT TAKEN IN ABOUT 2 MONTHS buspirone 10 mg tablet 10 mg PO TID buspirone 10 mg tablet 10 mg PO BID Qty: 20 0RF quetiapine [Seroquel] 100 mg tablet 100 mg PO QHS Qty: 20 0RF Primary Care Provider: Care Physician,No Primary Referrals: Care Physician,No Primary [Primary Care Provider] - Disposition Disposition: Acute Care Hospital Discharge Location: [facility]
--- NOTE | 2023-07-15 04:32 | RAD_ITS ---
INDICATION: Respiratory failure EXAMINATION/TECHNIQUE: X-RAY - XR Chest 1 View COMPARISON: 07/15/23. FINDINGS: LINES/DEVICES: None. LUNGS: Endotracheal tube 5.5 cm above the chilo. Enteric tube subdiaphragmatic within the stomach. No consolidation, edema or effusion. No pneumothorax. MEDIASTINUM AND CARDIOVASCULAR STRUCTURES: Cardiac silhouette not enlarged. BONES AND SOFT TISSUES: Unremarkable. RAD/Chest 1 View (Portable) IMPRESSION: Support apparatus as above. No radiographic evidence of consolidative pneumonia or florid edema. Electronically Signed: Alfredo Duron MD at 5:01 EST ,
--- NOTE | 2023-07-15 05:06 | EDS_ITS ---
HPI History of Present Illness Chief Complaint: General Illness [facility] Medical History Acute electrocardiogram changes Acute hypokalemia Acute hyponatremia Alcoholism Anxiety Depression Muscle weakness Smoker Home Medications buspirone 10 mg tablet 10 mg PO TID 08/21/22 [History Last Taken 04/03/23] quetiapine 100 mg tablet 100 mg PO QHS 08/21/22 [History Last Taken Unknown] buspirone 10 mg tablet 10 mg PO BID #20 tabs 04/08/23 [Rx Last Taken Unknown] quetiapine 100 mg tablet (Seroquel) 100 mg PO QHS #20 tabs 04/08/23 [Rx Last Taken Unknown] Allergy/AdvReac Type Severity Reaction Status Date / Time No Known Allergies Allergy Verified 04/17/23 08:04 Social History Smoking Status: Current every day smoker tobacco type: cigarettes EXAM Physical Exam Const Vital Signs: 07/14/23 23:18 07/14/23 23:22 07/14/23 23:22 Temperature 98 F Temperature Source Oral Pulse Rate 106 H Pulse Rate [11] Pulse Rate [4] Pulse Rate [9] Respiratory Rate 18 Respiratory Pattern Normal Blood Pressure 92/61 Blood Pressure [4] Blood Pressure Mean 71 Pulse Ox 99 Oxygen Delivery Method Room Air Oxygen Flow Rate (L/min) Fraction of Inspired Oxygen (FIO2) 07/14/23 23:54 07/15/23 00:30 07/15/23 00:00 Temperature Temperature Source Pulse Rate 110 H 60 Pulse Rate [11] 134 H Pulse Rate [4] 128 H Pulse Rate [9] 60 Respiratory Rate 16 26 H Respiratory Pattern Normal Blood Pressure 125/116 H Blood Pressure [4] 124/105 H Blood Pressure Mean 119 Pulse Ox 99 Oxygen Delivery Method Room Air Ambu-Bag Oxygen Flow Rate (L/min) Fraction of Inspired Oxygen (FIO2) 60 07/15/23 00:30 07/15/23 01:00 07/15/23 01:30 Temperature Temperature Source Pulse Rate 110 H 111 H 113 H Pulse Rate [11] Pulse Rate [4] Pulse Rate [9] Respiratory Rate 12 16 16 Respiratory Pattern Blood Pressure 132/105 H 164/123 H 164/125 H Blood Pressure [4] Blood Pressure Mean 114 136 138 Pulse Ox 100 98 97 Oxygen Delivery Method Ambu-Bag Mechanical Ventilator Mechanical Ventilator Oxygen Flow Rate (L/min) Fraction of Inspired Oxygen (FIO2) 07/15/23 02:00 07/15/23 02:30 07/15/23 00:18 Temperature Temperature Source Pulse Rate 116 H 115 H Pulse Rate [11] Pulse Rate [4] Pulse Rate [9] Respiratory Rate 20 H 25 H Respiratory Pattern Blood Pressure 150/114 H 114/89 H Blood Pressure [4] Blood Pressure Mean 126 97 Pulse Ox 95 Oxygen Delivery Method Mechanical Ventilator Mechanical Ventilator Oxygen Flow Rate (L/min) Fraction of Inspired Oxygen (FIO2) 60 07/15/23 02:45 07/15/23 04:42 07/15/23 03:00 Temperature 97.7 F L Temperature Source Pulse Rate 102 H 120 H 118 H Pulse Rate [11] Pulse Rate [4] Pulse Rate [9] Respiratory Rate 25 H 16 24 H Respiratory Pattern Blood Pressure 121/92 H 103/81 H 91/78 Blood Pressure [4] Blood Pressure Mean 101 88 82 Pulse Ox 92 98 95 Oxygen Delivery Method Mechanical Ventilator Non-Rebreather Oxygen Flow Rate (L/min) 15 Fraction of Inspired Oxygen (FIO2) 40 07/15/23 03:30 07/15/23 04:00 07/15/23 04:26 Temperature Temperature Source Pulse Rate 120 H 118 H 113 H Pulse Rate [11] Pulse Rate [4] Pulse Rate [9] Respiratory Rate 27 H 29 H 14 Respiratory Pattern Blood Pressure 112/89 H 91/69 98/71 Blood Pressure [4] Blood Pressure Mean 96 76 80 Pulse Ox 99 97 99 Oxygen Delivery Method Non-Rebreather Non-Rebreather Mechanical Ventilator Oxygen Flow Rate (L/min) 15 Fraction of Inspired Oxygen (FIO2) 60 07/15/23 04:40 Temperature Temperature Source Pulse Rate 120 H Pulse Rate [11] Pulse Rate [4] Pulse Rate [9] Respiratory Rate 16 Respiratory Pattern Blood Pressure 103/81 H Blood Pressure [4] Blood Pressure Mean 88 Pulse Ox 95 Oxygen Delivery Method Mechanical Ventilator Oxygen Flow Rate (L/min) Fraction of Inspired Oxygen (FIO2) 60 MDM MDM Lab Data Labs: Laboratory Results - last 24 hr 07/14/23 07/14/23 07/15/23 23:55 23:55 00:20 WBC Cancelled Corrected WBC Cancelled RBC Cancelled Hgb Cancelled Hct Cancelled MCV Cancelled MCH Cancelled MCHC Cancelled RDW Std Deviation Cancelled RDW Coeff of Manju Cancelled Plt Count Cancelled MPV Cancelled Immature Gran % (Auto) Cancelled Neut % (Auto) Cancelled Lymph % (Auto) Cancelled Childress % (Auto) Cancelled Eos % (Auto) Cancelled Baso % (Auto) Cancelled Absolute Neuts (auto) Cancelled Absolute Lymphs (auto) Cancelled Total Counted Cancelled Neutrophils % (Manual) Cancelled Band Neutrophils % Cancelled Lymphocytes % (Manual) Cancelled Monocytes % (Manual) Cancelled Eosinophils % (Manual) Cancelled Basophils % (Manual) Cancelled Metamyelocytes % Cancelled Myelocytes % Cancelled Promyelocytes % Cancelled Blast Cells % Cancelled Plasma Cell % (Manual) Cancelled Other Cells % Cancelled Nucleated RBC % Cancelled Nucleated RBCs/100 WBC Cancelled Differential Comment Cancelled Diff Path Review Cancelled Hypersegmented Neuts Cancelled Atypical Lymphocytes Cancelled Reactive Lymphocytes Cancelled Smudge Cells Cancelled Toxic Granulation Cancelled Toxic Vacuolation Cancelled Dohle Bodies Cancelled Cornell Rods Cancelled Platelet Estimate Cancelled Plt Morphology Comment Cancelled RBC Morphology Cancelled Cancelled Polychromasia Cancelled Hypochromasia Cancelled Poikilocytosis Cancelled Basophilic Stippling Cancelled Anisocytosis Cancelled Microcytosis Cancelled Macrocytosis Cancelled Spherocytes Cancelled Sickle Cells Cancelled Target Cells Cancelled Tear Drop Cells Cancelled Ovalocytes Cancelled Stomatocytes Cancelled [place]Sanders Bodies Cancelled Breezy Point Cells Cancelled Bite Cells Cancelled Crenated Cell Cancelled Acanthocytes (Spur) Cancelled Rouleaux Cancelled Schistocytes Cancelled PT Cancelled INR Cancelled APTT Sodium Cancelled Potassium Cancelled Chloride Cancelled Carbon Dioxide Cancelled Anion Gap Cancelled BUN Cancelled Creatinine Cancelled Estim Creat Clear Calc Cancelled Est GFR (MDRD) Af Amer Cancelled Est GFR (MDRD) Non-Af Cancelled BUN/Creatinine Ratio Cancelled Glucose Cancelled Lactic Acid Calcium Cancelled Magnesium Total Bilirubin Cancelled AST Cancelled ALT Cancelled Alkaline Phosphatase Cancelled Troponin I High Sens Total Protein Cancelled Albumin Cancelled Globulin Cancelled Albumin/Globulin Ratio Cancelled Lipase Urine Opiates Screen NEGATIVE Urine Methadone Screen NEGATIVE Ur Barbiturates Screen NEGATIVE Ur Phencyclidine Scrn NEGATIVE Ur Amphetamines Screen NEGATIVE MDMA (Ecstasy) Screen NEGATIVE U Benzodiazepines Scrn NEGATIVE Urine Cocaine Screen NEGATIVE U Cannabinoids Screen NEGATIVE Ur Drug Screen Comment Ethyl Alcohol Cancelled 07/15/23 07/15/23 07/15/23 00:30 00:34 00:53 WBC 20.9 H Corrected WBC RBC 2.89 L Hgb 12.1 L Hct 34.7 L MCV 120.1 H MCH 41.9 H MCHC 34.9 RDW Std Deviation 85.5 H RDW Coeff of Manju 19.0 H Plt Count 189 MPV 10.8 Immature Gran % (Auto) Neut % (Auto) Not Reportable Lymph % (Auto) Childress % (Auto) Eos % (Auto) Baso % (Auto) Absolute Neuts (auto) 14.4 H Absolute Lymphs (auto) 5.65 H Total Counted 100 Neutrophils % (Manual) 67 Band Neutrophils % 2 Lymphocytes % (Manual) 27 Monocytes % (Manual) 1 Eosinophils % (Manual) 1 Basophils % (Manual) Metamyelocytes % Myelocytes % 2 H Promyelocytes % Blast Cells % Plasma Cell % (Manual) Other Cells % Nucleated RBC % Nucleated RBCs/100 WBC Differential Comment SCANNED Diff Path Review May foll Hypersegmented Neuts Atypical Lymphocytes Reactive Lymphocytes 3+ Smudge Cells Toxic Granulation Toxic Vacuolation Dohle Bodies Cornell Rods Platelet Estimate Plt Morphology Comment RBC Morphology Polychromasia Hypochromasia Poikilocytosis Basophilic Stippling Anisocytosis 2+ Microcytosis Macrocytosis Spherocytes Sickle Cells Target Cells Tear Drop Cells Ovalocytes Stomatocytes [place]-Sanders Bodies Breezy Point Cells Bite Cells Crenated Cell Acanthocytes (Spur) Rouleaux Schistocytes PT INR APTT 41.1 H Sodium 136 Potassium 1.6 L* Chloride 86 L Carbon Dioxide 20.0 L Anion Gap 30 H BUN 12 Creatinine 1.44 H Estim Creat Clear Calc 78.49 Est GFR (MDRD) Af Amer 70 Est GFR (MDRD) Non-Af 57 L BUN/Creatinine Ratio 8.3 L Glucose 225 H Lactic Acid Calcium 7.3 L Magnesium 4.9 H Total Bilirubin 3.80 H AST 86 H ALT 35 Alkaline Phosphatase 199 H Troponin I High Sens 8 Total Protein 5.9 L Albumin 2.2 L Globulin 3.7 Albumin/Globulin Ratio 0.6 L Lipase 28 Urine Opiates Screen Urine Methadone Screen Ur Barbiturates Screen Ur Phencyclidine Scrn Ur Amphetamines Screen MDMA (Ecstasy) Screen U Benzodiazepines Scrn Urine Cocaine Screen U Cannabinoids Screen Ur Drug Screen Comment Ethyl Alcohol < 3.0 07/15/23 07/15/23 01:00 02:43 WBC Corrected WBC RBC Hgb Hct MCV MCH MCHC RDW Std Deviation RDW Coeff of Manju Plt Count MPV Immature Gran % (Auto) Neut % (Auto) Lymph % (Auto) Child[place] % (Auto) Eos % (Auto) Baso % (Auto) Absolute Neuts (auto) Absolute Lymphs (auto) Total Counted Neutrophils % (Manual) Band Neutrophils % Lymphocytes % (Manual) Monocytes % (Manual) Eosinophils % (Manual) Basophils % (Manual) Metamyelocytes % Myelocytes % Promyelocytes % Blast Cells % Plasma Cell % (Manual) Other Cells % Nucleated RBC % Nucleated RBCs/100 WBC Differential Comment Diff Path Review Hypersegmented Neuts Atypical Lymphocytes Reactive Lymphocytes Smudge Cells Toxic Granulation Toxic Vacuolation Dohle Bodies Cornell Rods Platelet Estimate Plt Morphology Comment RBC Morphology Polychromasia Hypochromasia Poikilocytosis Basophilic Stippling Anisocytosis Microcytosis Macrocytosis Spherocytes Sickle Cells Target Cells Tear Drop Cells Ovalocytes Stomatocytes [place]-Sanders Bodies Franc Cells Bite Cells Crenated Cell Acanthocytes (Spur) Rouleaux Schistocytes PT INR APTT Sodium Potassium Chloride Carbon Dioxide Anion Gap BUN Creatinine Estim Creat Clear Calc Est GFR (MDRD) Af Amer Est GFR (MDRD) Non-Af BUN/Creatinine Ratio Glucose Lactic Acid 18.0 H* Calcium Magnesium Total Bilirubin AST ALT Alkaline Phosphatase Troponin I High Sens 167 H* Total Protein Albumin Globulin Albumin/Globulin Ratio Lipase Urine Opiates Screen Urine Methadone Screen Ur Barbiturates Screen Ur Phencyclidine Scrn Ur Amphetamines Screen MDMA (Ecstasy) Screen U Benzodiazepines Scrn Urine Cocaine Screen U Cannabinoids Screen Ur Drug Screen Comment Ethyl Alcohol ABG Data ABG results: ABG 07/15/23 07/15/23 00:48 02:11 Specimen Type ART ART Sample Site R Radial R Radial pH 7.11 L* 7.42 Bicarbonate Actual 21.1 L 28.3 H Total CO2 23 30 Base Excess -8 L 4 H O2 Saturation 99 95 O2 % 60.0 60.0 ABG pCO2 67.2 H* 44.0 ABG pO2 175 H 73 L Justino Test Positive Positive Respiration Rate 16 16 O2 Delivery Device Adult Vent Adult Vent Vent Mode AC AC Tidal Volume 500.0 500.0 POC PEEP 5 5 Crit Call To/Read Back Yes Blood Gas Notified Whom dr morales Blood Gas Notified Time 00:50:20 Radiography Chest X-Ray - ED: Read by ED Physician (Single view portable chest x-ray reveals endotracheal tube to be in proper position. OG is in proper position. Single view was obtained. Cardiac silhouette and size normal. There is no pneumothorax or effusion. Is no infiltrate. This is independent reviewed interpreted by me at the time x-ray ) Diagnostic Testing: Clinical Impression(s) from Imaging Studies KUB X-Ray 07/15/23 00:18 IMPRESSION: Enteric tube projects subdiaphragmatic within the stomach. Electronically Signed: Alfredo uDron MD at 1:00 EST , Chest X-Ray 07/15/23 00:20 IMPRESSION: Support apparatus as above No radiographic evidence of acute cardiopulmonary disease. Electronically Signed: Alfredo Duron MD at 0:59 EST Reading Location ID and State: [employer] / [place] Tel , Service support , Chest CTA 07/15/23 00:56 IMPRESSION: No pulmonary embolism or evidence of acute airspace disease. Mild peribronchial thickening as can be seen with bronchitis/bronchiolitis. Hepatic steatosis. Suggestion of hepatomegaly. Mild calcified coronary atherosclerosis. Electronically Signed: Alfredo Duron MD at 2:45 EST , ADDENDUM: 07/15/23 0301 IMPRESSION: undefined Chest X-Ray 07/15/23 04:32 IMPRESSION: Support apparatus as above. No radiographic evidence of consolidative pneumonia or florid edema. Electronically Signed: Alfredo Duron MD at 5:01 EST Reading Location ID and State: [employer] / [place] Tel , Service support , Treatment and Re-Evaluation :: Spoke poke with Dr. Patino at [phone]. Bicarb was discontinued. He was told to patient extubated himself and required intubation. He requested the fentanyl drip to be increased. Discharge Plan Triage Chief Complaint: General Illness ED Provider: Gene Morales Dx/Rx/DC Orders Clinical Impression: Cardiopulmonary arrest with successful resuscitation, Acute respiratory failure with hypoxia and hypercapnia, Torsades de pointes, Acute hypokalemia, Acidosis, lactic, Leukocytosis, Sternal fracture, Non-ST elevated myocardial infarction Prescriptions: No Action quetiapine 100 mg tablet 100 mg PO QHS Patient Comments: PT STATES RAN OUT AND HAS NOT TAKEN IN ABOUT 2 MONTHS buspirone 10 mg tablet 10 mg PO TID buspirone 10 mg tablet 10 mg PO BID Qty: 20 0RF quetiapine [Seroquel] 100 mg tablet 100 mg PO QHS Qty: 20 0RF Primary Care Provider: Care Physician,No Primary Referrals: Care Physician,No Primary [Primary Care Provider] - Disposition Disposition: Acute Care Hospital Discharge Location: [facility]
--- NOTE | 2023-07-15 05:07 | ED.RN ---
0315 pt self extubated. placed on non-rebreather. 99% HR119 BP 109/72. see VS for further info 0415 pt's o2 sats decreased and dr morales decided to reintubate. 7.5 ET at 24 on the lip. NG replaced. dr morales confirmed placement w/xray. 0500 physicians here for transfer. dr morales requested that we d/c the bicarb and increase fentanyl to 50mcg/hr.
[2023-07-15 05:08] LABS: Reflex Lactate? Y
[2023-07-17 12:57] LABS: Pathologist Review Reviewed
== END 2023-07-15 05:35 | disposition short-term general hospital (02) ==
PROVIDERS: Emergency Provider Emergency Medicine; Visit Provider Emergency Medicine
DX: I21.4 Non-ST elevation (NSTEMI) myocardial infarction (principal); F10.20 Alcohol dependence, uncomplicated; J96.01 Acute respiratory failure with hypoxia; J96.02 Acute respiratory failure with hypercapnia; I47.21 Torsades de pointes; D72.829 Elevated white blood cell count, unspecified; E87.6 Hypokalemia; M79.671 Pain in right foot; M79.672 Pain in left foot; E87.20 Acidosis, unspecified; F17.210 Nicotine dependence, cigarettes, uncomplicated; Z91.148 Patient's other noncompliance with medication regimen for other reason; F41.9 Anxiety disorder, unspecified; F32.A Depression, unspecified; E66.9 Obesity, unspecified; I25.10 Atherosclerotic heart disease of native coronary artery without angina pectoris; M96.A1 Fracture of sternum associated with chest compression and cardiopulmonary resuscitation; Y92.239 Unspecified place in hospital as the place of occurrence of the external cause
CPT/HCPCS: 31500; 31720; 36600; 51702; 71045; 71275; 74018; 80053; 80307; 80320; 82803; 83605; 83690; 83735; 84484; 85025; 85730; 92950; 93005; 94002; 96365; 96366; 96367; 96368; 96375; 99252; 99285; J7030; Q9967; A4216; G0463; G0480; J3475

== ENCOUNTER 2023-08-06 12:33 | Emergency (ER) | payer MEDICAID, SELFPAY ==
[2023-08-06 12:33] VITALS: BP 122/83; PULSE 78; RESP 16; TEMP 35.8; O2SAT 100; BMI 25.4
--- NOTE | 2023-08-06 13:00 | EDS_ITS ---
HPI <SHERIE Vergara - Last Filed: 08/06/23 15:01> History of Present Illness Chief Complaint: General Illness Narrative Narrative: Patient states he came in the [facility] on 07/15 because he wanted to stop drinking alcohol and have his chronic bilateral leg pain addressed. While he was here he had a cardiopulmonary arrest and was resuscitated and transferred to [facility] on 07/15/2023. He remembers waking up in [place] days later. He had a pacemaker with defibrillator placed. He was discharged on 07/31 and states he has had pain all over since leaving. He states he wants his original concern of leg pain addressed. He has tingling/aching pain in both anterior thighs and both feet. Occasionally he will get a sharp shooting pain. There is no back pain or posterior leg pain. No swelling or skin changes. He has had this pain for over a year. He drinks alcohol heavily from age 22 up until his recent hospital admission. [facility] <SHERIE Vergara - Last Filed: 08/06/23 15:01> [facility] Medical History Acute electrocardiogram changes Acute hypokalemia Acute hyponatremia Alcoholism Anxiety Depression Muscle weakness Smoker Home Medications buspirone 10 mg tablet 10 mg PO TID 08/21/22 [History Last Taken 04/03/23] quetiapine 100 mg tablet 100 mg PO QHS 08/21/22 [History Last Taken Unknown] buspirone 10 mg tablet 10 mg PO BID #20 tabs 04/08/23 [Rx Last Taken Unknown] quetiapine 100 mg tablet (Seroquel) 100 mg PO QHS #20 tabs 04/08/23 [Rx Last Taken Unknown] oxycodone-acetaminophen 5 mg-325 mg tablet (Percocet) 1 tab PO Q6H PRN pain 3 days #12 tabs 08/06/23 [Rx Last Taken Unknown] Allergy/AdvReac Type Severity Reaction Status Date / Time No Known Allergies Allergy Verified 04/17/23 08:04 Social History Smoking Status: Current every day smoker tobacco type: cigarettes ROS <SHERIE Vergara - Last Filed: 08/06/23 15:01> ROS ED ROS Narrative Constitutional: Negative for fever, chills, malaise. CVS: Positive for chest pain. Negative for syncope. Respiratory: Negative for shortness of breath, cough. GI: Negative for abdominal pain, nausea, vomiting. EXAM <SHERIE Vergara - Last Filed: 08/06/23 15:01> Physical Exam Narrative Exam Narrative: CONST: Patient sitting in no acute distress. EYES: Normal inspection. NECK: Normal inspection. RESP: No respiratory distress, CTAB. Left lateral chest incision is healed with no dehiscence or erythema. CVS: Regular rate and rhythm, no murmur, no gallop. ABD: Soft and nontender, no guarding or rebound, nondistended. SKIN: Color normal, no rash, warm, dry, intact. EXTREMITIES: Normal appearance, full ROM in extremities, NEURO: Oriented x4. PSYCH: Normal affect. Const Vital Signs: 08/06/23 12:33 08/06/23 13:31 08/06/23 13:31 Temperature 96.5 F L Temperature Source Temporal Pulse Rate 78 72 Respiratory Rate 16 18 Respiratory Pattern Normal Blood Pressure 122/83 H Blood Pressure Mean 96 Pulse Ox 100 99 Oxygen Delivery Method Room Air Room Air <Dr. Bill Luna DO - Last Filed: 08/06/23 14:54> Physical Exam Const Vital Signs: 08/06/23 12:33 08/06/23 13:31 08/06/23 13:31 Temperature 96.5 F L Temperature Source Temporal Pulse Rate 78 72 Respiratory Rate 16 18 Respiratory Pattern Normal Blood Pressure 122/83 H Blood Pressure Mean 96 Pulse Ox 100 99 Oxygen Delivery Method Room Air Room Air MDM <SHERIE Vergara - Last Filed: 08/06/23 15:01> [facility] Narrative Medical decision making narrative: Differential: ACS, musculoskeletal pain, fracture, pneumothorax 43-year-old male has complaints of diffuse chest pain. Also chronic bilateral leg pain over the last year. He was recently hospitalized for cardiac arrest and had a sternal fracture. In the interim he has had a pacemaker placed. He appears well and nontoxic and has normal vital signs. Normal heart and lung sounds. He has diffuse chest tenderness but no deformity or crepitus. His abdominal/lower chest incisions from the pacemaker are healing well without signs of dehiscence or infection. EKG is sinus rhythm with no acute ischemic changes and cardiac enzymes are normal. He has a white count of 27.3 but no signs or symptoms of infection and has a normal lactate at 1.7. I suspect his leukocytosis is from the prednisolone he has been on over the last week. Patient's pain is significant improved after Toradol and Percocet. His diffuse chest pain is likely secondary to recent CPR, sternal fracture, and pacemaker placement. I prescribed a short course of Percocet for home. I discussed the chronic pain in his legs sounds like neuropathy from previous heavy alcohol use. He plans to establish with a PCP and they can discuss other treatment options for this. He was comfortable with this plan and discharged in stable condition. Lab Data Attestation: I reviewed the patient's lab results. Labs: Laboratory Results - last 24 hr 08/06/23 08/06/23 13:25 13:50 WBC 27.3 H RBC 3.19 L Hgb 11.7 L Hct 34.9 L MCV 109.4 H MCH 36.7 H MCHC 33.5 RDW Std Deviation 69.4 H RDW Coeff of Manju 17.1 H Plt Count 334 MPV 10.2 Immature Gran % (Auto) 0.800 Neut % (Auto) 76.3 H Lymph % (Auto) 15.3 L [place] % (Auto) 6.9 Eos % (Auto) 0.4 Baso % (Auto) 0.3 Absolute Neuts (auto) 20.8 H Absolute Lymphs (auto) 4.16 Nucleated RBC % 0 Platelet Estimate ADEQUATE Macrocytosis 1+ Sodium 134 L Potassium 3.0 L Chloride 98 Carbon Dioxide 30.0 Anion Gap 6 BUN 14 Creatinine 0.64 L Estim Creat Clear Calc 176.60 Est GFR (MDRD) Af Amer 176 Est GFR (MDRD) Non-Af 145 BUN/Creatinine Ratio 21.7 H Glucose 99 Lactic Acid 1.7 Calcium 9.8 Magnesium 1.7 Total Creatine Kinase 19 L Troponin I High Sens 11 Radiography Diagnostic Testing: Clinical Impression(s) from Imaging Studies Chest X-Ray 08/06/23 13:03 IMPRESSION: No acute cardiopulmonary abnormality. As above. Electronically Signed: Jarrell Borrero MD at 14:23 EST , ED attending interpretation of 2-view chest x-ray shows normal heart size, no acute infiltrate, edema, or effusion. EKG Initial EKG: Attestation: I personally reviewed and interpreted this EKG as follows: Interpretation: Sinus Rhythm and No Acute Injury Pattern Comments: Normal sinus rhythm at 82 bpm T wave inversions in chest leads, unchanged from previous Prior EKG tracings: available for review Prior: Unchanged <Dr. Bill Luna, DO - Last Filed: 08/06/23 14:54> [facility] Lab Data Labs: Laboratory Results - last 24 hr 08/06/23 08/06/23 13:25 13:50 WBC 27.3 H RBC 3.19 L Hgb 11.7 L Hct 34.9 L MCV 109.4 H MCH 36.7 H MCHC 33.5 RDW Std Deviation 69.4 H RDW Coeff of Manju 17.1 H Plt Count 334 MPV 10.2 Immature Gran % (Auto) 0.800 Neut % (Auto) 76.3 H Lymph % (Auto) 15.3 L [place] % (Auto) 6.9 Eos % (Auto) 0.4 Baso % (Auto) 0.3 Absolute Neuts (auto) 20.8 H Absolute Lymphs (auto) 4.16 Nucleated RBC % 0 Platelet Estimate ADEQUATE Macrocytosis 1+ Sodium 134 L Potassium 3.0 L Chloride 98 Carbon Dioxide 30.0 Anion Gap 6 BUN 14 Creatinine 0.64 L Estim Creat Clear Calc 176.60 Est GFR (MDRD) Af Amer 176 Est GFR (MDRD) Non-Af 145 BUN/Creatinine Ratio 21.7 H Glucose 99 Lactic Acid 1.7 Calcium 9.8 Magnesium 1.7 Total Creatine Kinase 19 L Troponin I High Sens 11 Radiography Diagnostic Testing: Clinical Impression(s) from Imaging Studies Chest X-Ray 08/06/23 13:03 IMPRESSION: No acute cardiopulmonary abnormality. As above. Electronically Signed: Jarrell Borrero MD at 14:23 EST , Treatment and Re-Evaluation :: ED attending note: I evaluated the patient in conjunction with the LEVI. I agree with his/her statements and above findings. I have personally performed a face to face assessment of the patient and have reviewed the LEVI Note. I performed a substantive portion of the visit including all aspects of the following. I personally saw the patient performed chart review, physical exam, reviewed labs, imaging (if obtained), and formulated a treatment and management plan. Brief history: 43-year-old male presents with diffuse tenderness palpation. Notes chronic leg pain for last year to year and a half also endorses body aches and chest pain. He notes he was recently hospitalized secondary to cardiac arrest. Patient notes has been on oral methylprednisolone since discharge from hospital 6 days ago. HE has been compliant with his medication Exam: Nursing triage notes reviewed, Vital signs reviewed Constitutional: please see mdm HENT: MMM Eyes: Pupils equal round and reactive to light, Extraocular muscles intact Neck: No stridor, no JVD, full neck ROM Lungs: Clear to auscultation, No wheezing or rales. No increased work of breathing, no conversational dyspnea, no accessory muscle use, no nasal flaring. No respiratory distress noted, trocar incision sites noted just inferior to the sternum and left chest are clean dry intact no fluctuance or induration Heart: Regular rate and rhythm, No murmurs, No rubs and No gallops, 2+ distal pulses (radial, femoral, posterior tibial) in all extremities Abdomen: Soft, there is no tenderness, rigidity, rebound or guarding, no obvious peritoneal signs, no palpable pulsatile abdominal masses, no auscultated abdominal bruit : No CVAT Extremities: No edema, compartments are soft, no obvious deformities. Neuro: No focal neurological deficits, cranial nerves II through XII intact, 5/5 strength in all extremities. Intact sensation to light touch in all extremities, 2+ reflexes bilateral patella dens. Normal gait. No ataxia. Skin: Surgical incision sites are clean dry intact with no redness, fluctuance, or induration. There are no signs of infection. MDM/plan: Chief Complaint: Myalgias, chest pain External records reviewed: Seen for cardiac arrest here at the end of June 2023. CTA reviewed from prior ED visit showed evidence of sternal fractures likely secondary to CPR Factors affecting care: [Cardiac arrest, alcohol abuse Social determinants of health: Alcohol abuse History obtained from others: The patient's brother Consults: None [facility] narrative: Patient was hemodynamically stable, afebrile, nontoxic-appearing. Exam without focus of infection, no focal deficits. Heart and lung exam was unremarkable. We did obtain labs images to ascertain any signs of myocardial ischemia given recent cardiac arrest. Ascertained any sign of infection with a chest x-ray given recent intubation and CPR I considered the following differential diagnosis: Infectious etiologies, rhabdomyolysis, electrolyte disturbance, ACS, arrhythmia The patient EKG was nonischemic he did have chronic ST depressions that were present on prior EKG I have personally reviewed the patient's chest x-ray. Chest x-ray is unremarkable for pulmonary edema, pneumothorax, pneumonia or focal cardiopulmonary abnormality. Lactate is wnl indicating no end-organ hypoperfusion and/or hypoxia. CPK within normal limits High-sensitivity troponin is negative, no evidence of myocardial ischemia No significant electrolyte abnormalities noted on BMP or magnesium draw. Patient did have mild hypokalemia and this was replaced with oral potassium. CBC with marked leukocytosis uptrending from prior, mild anemia, no thrombocytopenia I suspect leukocytosis secondary to current steroid use. Do not suspect a secondary to severe infection. Risk and benefits of further ED care and admission were discussed with the patient. I do not feel he need to be admitted at this time given reassuring exam, labs images. I have a low suspicion for severe systemic infection given vital signs and labs. I suspect his leukocytosis secondary to steroid-induced leukocytosis. He was alert and orient x 3 and had capacity to make his own medical decisions. He chose to be discharged home with oral pain medication (narcotics) to treat likely pain from recent cardiac arrest, CPR and sternal fracture. DIscussed follow-up instructions and strict return precautions. The synthesis of the patient history, physical exam, labs images suggest no acute life-limiting etiology. Shared decision making: I will have a discussion with the patient and or visitors regarding risk/benefits of further testing or admission. They will be made aware of of the risk/benefits inherent in this decision they will be given the opportunity to voice understanding. This note was generated with [employer] dictation software. It may contain incorrect words, spelling, and punctuation that were not noted in review of the chart pr ior to signing. Discharge Plan Triage Chief Complaint: General Illness ED Midlevel Provider: Cris Bowen ED Provider: Bill Luna Dx/Rx/DC Orders Clinical Impression: Neuropathy, Chest pain Instructions: Communicating About Pain Prescriptions: New oxycodone-acetaminophen [Percocet] 5-325 mg tablet 1 tab PO Q6H PRN (Reason: pain) 3 Days Qty: 12 0RF No Action quetiapine 100 mg tablet 100 mg PO QHS Patient Comments: PT STATES RAN OUT AND HAS NOT TAKEN IN ABOUT 2 MONTHS buspirone 10 mg tablet 10 mg PO TID buspirone 10 mg tablet 10 mg PO BID Qty: 20 0RF quetiapine [Seroquel] 100 mg tablet 100 mg PO QHS Qty: 20 0RF Primary Care Provider: Care Physician,No Primary Referrals: Leigha Grimm MD [Med Staff - Obstetrics Technician] - Ganga Mosley MD [Med Staff - Obstetrics Technician] - Care Physician,No Primary [Primary Care Provider] - Activity Restrictions/Additional Instructions: The CAT scan you had here in June showed your sternum is fractured. You also likely have pain from the CPR you underwent and surgery. Use the Percocet as needed and follow-up with a primary care doctor. Disposition Disposition: Home, Self Care
--- NOTE | 2023-08-06 13:03 | RAD_ITS ---
EXAM: XR CHEST, 2 VIEWS CLINICAL INDICATION: chest pain TECHNIQUE: Frontal and lateral views of the chest. COMPARISON: XR Chest dated 07/15/2023 FINDINGS: LUNGS AND PLEURAL SPACES: Normal. No consolidation or edema. No pneumothorax. No effusion. HEART: Normal heart size. MEDIASTINUM: No mediastinal or hilar mass. BONES/JOINTS: No acute abnormality. TUBES, LINES AND DEVICES: Interval placement of a parasternal pacemaker wire. OTHER FINDINGS: Interval extubation. RAD/Chest PA and Lateral IMPRESSION: No acute cardiopulmonary abnormality. As above. Electronically Signed: Jarrell Borrero MD at 14:23 EST ,
--- NOTE | 2023-08-06 13:03 | EKG12_ITS ---
Test Reason : FATIGUE Blood Pressure : / mmHG Vent. Rate : 082 BPM Atrial Rate : 082 BPM P-R Int : 124 ms QRS Dur : 084 ms QT Int : 432 ms P-R-T Axes : -13 049 219 degrees QTc Int : 504 ms Normal sinus rhythm ST & T wave abnormality, consider inferior ischemia ST & T wave abnormality, consider anterolateral ischemia Prolonged QT Abnormal ECG Confirmed by LISSETTE BOURGEOIS, AMBER ([id number]), publication editor PAN RICE ([id number]) on 08/07/2023 10:16:52 AM Referred By: Confirmed By:AMBER MCLAUGHLIN MD
[2023-08-06] MEDS: Ketorolac 15 MG/ML Vial IV (13:23)
[2023-08-06 13:31] VITALS: PULSE 72; RESP 18; O2SAT 99
[2023-08-06 13:34] LABS: Absolute Lymphocyte Count 4.16 X10^3/uL (0.83-4.51); Absolute Neutrophil Count 20.8 X10^3/uL (2.0-7.7); Basophil# 0.07 X10^3/uL; Basophil% 0.3 % (0-1); Eosinophil# 0.12 X10^3/uL; Eosinophils% 0.4 % (0-5); Hematocrit 34.9 % (40-54); Hemoglobin 11.7 g/dL (13.0-16.5); Lymphocyte # 4.16 X10^3/ul (0.83-4.51); Lymphocyte % 15.3 % (19-41); Mean Corp Hgb Conc 33.5 g/dL (32-36); Mean Corpuscular Hgb 36.7 pg (27.0-32.0); Mean Corpuscular Volume 109.4 fL (80-94); Mean Platelet Vol. 10.2 fl (6.2-12.0); Monocyte# 1.88 X10^3/uL; Monocyte% 6.9 % (0-10); NRBC Flagged by Analyzer 0 % (0-5); Neutrophil # 20.83 X10^3/uL (2.7-7.7); Neutrophil % 76.3 % (47-70); POSITIVE DIFFERENTIAL YES; POSITIVE MORPHOLOGY YES; Platelet Count 334 K/mm3 (150-450); RBC Distribution Width CV 17.1 % (11.6-14.6); RBC Distribution Width SD 69.4 fl (35.1-43.9); Red Blood Count 3.19 M/mm3 (4.6-6.2); White Blood Count 27.3 K/mm3 (4.4-11.0)
[2023-08-06 13:37] LABS: Differential Indicated SCAN CRITERIA MET
[2023-08-06] MEDS: Oxycodone/Apap 5/325 Tablet PO (13:38)
[2023-08-06 13:58] LABS: Anion Gap 6 (5-15); BUN 14 mg/dL (7-18); BUN/Creat Ratio 21.7 RATIO (10-20); Calcium,Total 9.8 mg/dL (8.5-10.1); Chloride 98 mmol/L (98-107); Creatinine, Serum 0.64 mg/dL (0.70-1.30); EST Glomerular Filtration Rate 145 mL/min (>60); Est Glom Filt Rate - Afr Amer 176 mL/min (>60); Glucose 99 mg/dL (74-106); Sodium Level 134 mmol/L (136-145); Troponin-I HS 11 pg/mL (3.0-78.0)
[2023-08-06 14:00] LABS: CPK Total, Creatine Kinase 19 U/L (39-308); Magnesium 1.7 mg/dL (1.6-2.6)
[2023-08-06 14:01] LABS: Macrocytosis 1+; Platelet Estimate ADEQUATE (ADEQ)
[2023-08-06 14:28] LABS: Lactic Acid 1.7 mmol/L (0.4-1.9)
[2023-08-06] MEDS: Potassium Chloride Oral Tablet 20 MEQ 40 MEQ PO (14:58)
[2023-08-06 14:59] VITALS: BP 121/80; PULSE 76; RESP 16; TEMP 35.8; O2SAT 99
== END 2023-08-06 15:05 | disposition home or self-care (01) ==
PROVIDERS: Physician Assistant; Emergency Provider Emergency Medicine; Visit Provider Emergency Medicine
DX: R07.9 Chest pain, unspecified (principal); Z95.0 Presence of cardiac pacemaker; G62.9 Polyneuropathy, unspecified; F10.10 Alcohol abuse, uncomplicated; E87.6 Hypokalemia; F17.210 Nicotine dependence, cigarettes, uncomplicated; M79.604 Pain in right leg; M79.605 Pain in left leg; G89.29 Other chronic pain
CPT/HCPCS: 71046; 80048; 82550; 83605; 83735; 84484; 85025; 93005; 96374; 99283; A4216

== ENCOUNTER 2023-08-13 16:12 | Emergency (ER) | payer MEDICAID, SELFPAY ==
[2023-08-13 16:13] VITALS: BP 130/99; PULSE 72; RESP 14; TEMP 36.2; O2SAT 100; BMI 24.4
--- NOTE | 2023-08-13 16:35 | EX.ED.DYSGE1 ---
HPI History of Present Illness Chief Complaint: Other, Pain/Inj Informant: patient Narrative Narrative: Patient complains of pain all over. It is mostly his legs and his chest. He was seen here a week ago for the same symptoms, he was prescribed Percocet, he states it was a 3-day supply that he has only been trying to take at night and deal with the pain during the day so that it lasts longer, while he tried to get established with a PCP and with pain management. Primary care told him they will not be able to get him in until his physical care source card is available which has not yet, and pain management told him that he needs a referral, so that is one of the reasons he is here asking for referral. He also states I am hoping to leave here pain-free. He understands lots of testing has been done already and he is not asking for more of those he understands why he is in pain, he recently had a cardiopulmonary arrest and CPR which caused a sternal fracture he is having pain there as well as his AICD site in his left lateral chest wall. Painful numbness and tingling may be neuropathy in his legs and he is feeling some of it in his arms as well but no weakness or trouble walking. He states his other medications he has, and takes as prescribed. [facility] Medical History Acute electrocardiogram changes Acute hypokalemia Acute hyponatremia Alcoholism Anxiety Depression Muscle weakness Smoker Home Medications folic acid 1 mg tablet 1 mg PO DAILY 08/13/23 [History Last Taken Unknown] metoprolol succinate 50 mg tablet,extended release 24 hr 50 mg PO DAILY 08/13/23 [History Last Taken Unknown] oxycodone-acetaminophen 5 mg-325 mg tablet 1 tab PO Q6H PRN PRN Pain 3 days #12 TABLETS 08/13/23 [Rx Last Taken Unknown] prednisolone sodium phosphate 10 mg disintegrating tablet 40 mg PO DAILY 08/13/23 [History Last Taken Unknown] rosuvastatin 20 mg tablet 20 mg PO DAILY 08/13/23 [History Last Taken Unknown] thiamine HCl (vitamin B1) 100 mg tablet 100 mg PO DAILY 08/13/23 [History Last Taken Unknown] Allergy/AdvReac Type Severity Reaction Status Date / Time No Known Allergies Allergy Verified 08/13/23 16:15 Social History Smoking Status: Current every day smoker tobacco type: cigarettes ROS ROS ED Constitutional Constitutional ED: Denies chills or fever(s) Eyes Eyes: Denies change in vision or diplopia ENT ENT ED: Denies rhinorrhea or sore throat Cardiovascular Cardiovascular: Reports chest pain; Denies palpitations Respiratory/Chest Respiratory/Chest: Denies cough or dyspnea Gastrointestinal Gastrointestinal: Denies abdominal pain, diarrhea, nausea or vomiting Genitourinary Genitourinary ED: Denies dysuria or hematuria Musculoskeletal Musculoskeletal: Reports extremity pain; Denies neck pain Integumentary Denies abscess or rash Neurologic Neurologic: Reports paresthesias RUE, RLE, LUE and LLE; Denies headache(s) or weakness Psychiatric Psychiatric: Reports anxiety; Denies suicidal ideation or suicidal thoughts EXAM Physical Exam Const Vital Signs: 08/13/23 16:13 08/13/23 16:24 Temperature 97.1 F L Temperature Source Temporal Pulse Rate 72 Respiratory Rate 14 Respiratory Effort Normal Non-Labored Respiratory Pattern Normal Blood Pressure 130/99 H Blood Pressure Mean 109 Pulse Ox 100 Oxygen Delivery Method Room Air Positive well nourished and well developed General Appearance ED: well developed and NAD HEENT Reports moist mucous membranes normocephalic and atraumatic Eyes PERRL and EOMs intact bilaterally Neck full ROM and supple Chest Wall Chest Narrative: Sternum diffusely tender no crepitance or subcutaneous emphysema. Left lateral chest wall AICD site without any signs of infection or incision dehiscence, incision looks good and is healing nicely there is some residual ecchymosis dependent to this area. No subcutaneous emphysema. No major objective tenderness to the area. Resp normal respiratory effort and clear to auscultation bilaterally Cardio regular rate, regular rhythm and no murmurs Rate: Negative for tachycardic GI non-tender and non-distended Auscultation: normoactive bowel sounds Palpation: soft Back/Spine no CVA tenderness General Back: other FROM Extremity normal to inspection General Extremety ED: Negative for edema, pulses abnormal or tenderness General Extremity: Negative for edema or pulses abnormal Neuro oriented x3, CN's II-XII intact bilaterally and no sensory deficits noted Sensorium / Orientation: awake and alert Motor Exam: strength 5/5 throughout Psych mental status grossly normal Skin no rashes or lesions noted Skin Narrative: Left lateral chest wall surgical wound see above. No signs of infection. MDM MDM MDM Narrative Medical decision making narrative: I reviewed the patient's initial visit where he appeared to have a ventricular dysrhythmia that suddenly resulted in cardiopulmonary arrest. He was resuscitated and transferred to [facility] and discharged with an AICD. He is no longer drinking alcohol and taking his medications, and asking for help with pain. I reviewed the ED visit from 1 week ago which seems entirely appropriate as far as the workup and I do not think any of this needs to be repeated. During initial evaluation he had a CTA ruling out pulmonary embolus. I think reasonable to give him another short course of pain medication, he understands that it is unreasonable to expect him to walk out of here pain-free, but I am giving him a dose of parenteral analgesic here prior to discharge and he is comfortable with that plan. He is given the name and number for pain management as well. I did check an [facility] report, it shows a single 3-day prescription that was given to him 1 week ago at the prior ER visit noted above, and nothing else. This is consistent with what he says. History & Record Review Additional record(s) reviewed:: Prior ED visit Discharge Plan Triage Chief Complaint: Other, Pain/Inj ED Provider: Moe Vela Dx/Rx/DC Orders Clinical Impression: Neuropathic pain, leg, bilateral, Anterior chest wall pain Instructions: ED Chronic Pain Prescriptions: New oxycodone-acetaminophen [oxycodone-acetaminophen] 5-325 mg tablet 1 tab PO Q6H PRN PRN (Reason: Pain) 3 Days Qty: 12 0RF No Action metoprolol succinate 50 mg tablet extended release 24 hr 50 mg PO DAILY Patient Comments: Take 1 tablet (50 mg) by mouth daily. Do not crush or chew. rosuvastatin 20 mg tablet 20 mg PO DAILY Patient Comments: Take 1 tablet (20 mg) by mouth daily. thiamine HCl (vitamin B1) 100 mg tablet 100 mg PO DAILY Patient Comments: Take 1 tablet (100 mg) by mouth daily. prednisolone sodium phosphate 10 mg tablet,disintegrating 40 mg PO DAILY Patient Comments: Take 4 tablets (40 mg) by mouth daily for 20 days. folic acid 1 mg tablet 1 mg PO DAILY Patient Comments: Take 1 tablet (1 mg) by mouth daily. Primary Care Provider: Care Physician,No Primary Referrals: Jayleen Diop MD [Med Staff - Active Staff] - Aisha Hope [Non-Staff] - (free clinic that also takes caresource, which you may try in order to establish primary care ) Disposition Disposition: Home, Self Care
[2023-08-13] MEDS: Morphine 4 MG/ML Syringe IM (16:42)
[2023-08-13 17:06] VITALS: BP 134/93; PULSE 61; RESP 16; TEMP 36.6; O2SAT 100
== END 2023-08-13 17:34 | disposition home or self-care (01) ==
PROVIDERS: Emergency Provider Emergency Medicine; Visit Provider Emergency Medicine
DX: G57.93 Unspecified mononeuropathy of bilateral lower limbs (principal); R07.89 Other chest pain; Z95.810 Presence of automatic (implantable) cardiac defibrillator; F17.210 Nicotine dependence, cigarettes, uncomplicated; Z79.899 Other long term (current) drug therapy; F41.9 Anxiety disorder, unspecified
CPT/HCPCS: 96372; 99282

== ENCOUNTER → 2023-09-12 | Outpatient (CLI) | payer MEDICAID, SELFPAY ==
[2023-09-12 10:40] LABS: ALB/GLOB Ratio 0.8 RATIO (0.9-2.4); AST(SGOT) 12 U/L (15-37); Alanine Aminotransfer ALT/SGPT 26 U/L (16-61); Albumin, Serum 3.2 g/dL (3.2-5.0); Alkaline Phosphatase 110 U/L (45-117); Anion Gap 10 (5-15); BUN 9 mg/dL (7-18); BUN/Creat Ratio 10.5 RATIO (10-20); Calcium,Total 9.3 mg/dL (8.5-10.1); Chloride 95 mmol/L (98-107); Creatinine, Serum 0.86 mg/dL (0.70-1.30); EST Glomerular Filtration Rate 104 mL/min (>60); Est Glom Filt Rate - Afr Amer 126 mL/min (>60); Globulin 4.1 g/dL (2.2-4.2); Glucose 167 mg/dL (74-106); Potassium 2.8 mmol/L (3.5-5.1); Protein, Total 7.3 g/dL (6.4-8.2); Sodium Level 134 mmol/L (136-145)
== END | disposition home or self-care (01) ==
LOC: LAB 09:36
PROVIDERS: PCP Family Medicine; Referring Provider Internal Medicine Cardiovascular Disease; Visit Provider Internal Medicine Cardiovascular Disease
DX: K70.30 Alcoholic cirrhosis of liver without ascites (principal); R06.02 Shortness of breath; R07.9 Chest pain, unspecified
CPT/HCPCS: 36415; 80053; 83735